=== PATIENT | male | born 1955 | race Two or more races ===

== ENCOUNTER 2023-09-15 03:04 | Inpatient (IN) | payer MEDICAID ==
[2023-09-15] VITALS (43 sets, daily range): BP systolic 91–193; BP diastolic 51–118; PULSE 52–160; RESP 13–28; TEMP 98.6–100; O2SAT 74–99
[~2023-09-15] VITALS: Ht 167.6 cm; Wt 90.0 kg
[2023-09-15] MEDS ORDERED: MIDAZOLAM HCL 5 MG/ML-1ML VIAL IV ONE (03:30)
[2023-09-15] MEDS ORDERED: MIDAZOLAM HCL 5 MG/ML-1ML VIAL ONE (03:31)
[2023-09-15] MEDS ORDERED: ADENOSINE 6 MG/2 ML INJ IV ONE ×4 (03:33→06:45)
[2023-09-15] MEDS ORDERED: ETOMIDATE (2MG/ML) 20ML VIAL IV ONE ×2 (03:37→06:45)
[2023-09-15] MEDS ORDERED: ROCURONIUM 10MG/ML 10ML VIAL IV ONE ×2 (03:38→06:45)
[2023-09-15 03:46] LABS: Basophils # (auto) 0.3 10 ^3/uL (0-0.2); Basophils % (auto) 1.8 % (0.0-2.0); Eosinophils # (auto) 0.5 10 ^3/uL (0-0.8); Eosinophils % (auto) 2.8 % (0.0-7.0); Hemoglobin 19.2 g/dL (13.5-17.5); Lymphocytes # (auto) 7.6 10 ^3/uL (0.4-5.4); Lymphocytes % (auto) 45.7 % (10.0-50.0); Mean Corpuscular Hemoglobin 31.2 pg (28.0-32.0); Mean Corpuscular Volume 94.4 fL (80.0-100.0); Monocytes # (auto) 0.9 10 ^3/uL (0-1.3); Monocytes % (auto) 5.7 % (0.0-12.0); Neutrophils # (auto) 7.3 10 ^3/uL (1.6-8.6); Nucleated Red Blood Cells % 0.4 %; Red Blood Cells 6.16 10^6/uL (4.5-5.90); Red Cell Distribution Width 13.6 % (11.8-14.3); White Blood Cell 16.6 10^3/uL (4.4-10.8)
[2023-09-15] MEDS ORDERED: fentaNYL CITRATE 100 MCG/2 ML VL ONE (03:46)
[2023-09-15 03:48] LABS: Hematocrit 58.2 % (41.0-53.0)
[2023-09-15] MEDS ORDERED: dilTIAZem HCL 50 MG/10 ML VIAL IV ONE (03:59)
[2023-09-15 04:04] LABS: Alanine Aminotransferase 25 U/L (7-40); Albumin 4.7 g/dL (3.2-4.8); Alkaline Phosphatase 102 U/L (46-116); Anion Gap 14 (5-15); Aspartate Aminotransferase 17 U/L (13-40); Bilirubin, Total 0.5 mg/dL (0.2-1.0); Blood Urea Nitrogen 15 mg/dL (9-23); Calcium 9.7 mg/dL (8.7-10.4); Carbon Dioxide 21 mmol/L (20-30); Chloride 107 mmol/L (98-107); Glucose 146 mg/dL (74-106); Magnesium 1.8 mg/dL (1.6-2.6); Potassium 4.2 mmol/L (3.5-5.1); Sodium 142 mmol/L (136-145); Total Protein 8.6 g/dL (5.7-8.2)
[2023-09-15] MEDS ORDERED: VANCOMYCIN 1GM/250ML 250 ML IV ONE (04:30)
[2023-09-15] MEDS ORDERED: PIPERACILLIN-TAZOB 3.375GM 100 ML IV ONE (04:30)
[2023-09-15] MEDS ORDERED: FUROSEMIDE 100 MG/10ML VIAL IV ONE (04:30)
[2023-09-15] MEDS: fentaNYL Drip 2500mCg/250mlNS 250 ML IV SCH ×2 (04:36→19:48)
[2023-09-15 05:00] LABS: Base Excess -14.3 mmol/L (-2.0-2.0)
[2023-09-15] MEDS ORDERED: DexAMETHasone SOD PHOS 10MG/1ML VIAL INJ IV ONE (05:15)
[2023-09-15] MEDS ORDERED: LACTATED RINGER'S 2,000 ML IV ONE (05:15)
[2023-09-15 05:24] LABS: Urine Bacteria MANY /hpf (None Seen); Urine Blood 1+ /uL (Negative); Urine Clarity HAZY (Clear); Urine Color Yellow (Yellow); Urine Mucus FEW (None Seen); Urine Protein, UAD 1+ (Negative); Urine Specific Gravity 1.018 (1.001-1.035); Urine Sperm PRESENT /hpf (None Seen); Urine Urobilinogen Normal (Negative); Urine WBC 17 /hpf (0 - 3); Urine pH 5.5 (5.0-8.0)
[2023-09-15] MEDS ORDERED: ONDANSETRON HCL 4 MG/2 ML VIAL IV PRN (06:00)
[2023-09-15] MEDS ORDERED: VANCOMYCIN PER PHARMACY 0 MG IV SCH (06:00)
[2023-09-15] MEDS ORDERED: LABETALOL HCL 5 MG/ML 4ML SYRINGE IV PRN (06:00)
[2023-09-15] MEDS ORDERED: dilTIAZem 25 MG/5 ML VIAL IV ONE ×2 (06:00→06:45)
[2023-09-15] MEDS ORDERED: MAGNESIUM SULFATE 1GM/100ML 100 ML IV ONE (06:45)
[2023-09-15] MEDS ORDERED: fentaNYL CITRATE 100 MCG/2 ML VL IV ONE (06:45)
[2023-09-15] MEDS ORDERED: ATROPINE SULF 1 MG/10ml SYR IV ONE (06:45)
[2023-09-15] MEDS ORDERED: FLUMAZENIL 0.1 MG/ML INJ 10ML MDV IV ONE (06:45)
[2023-09-15] MEDS ORDERED: MIDAZOLAM DRIP 50 mg/50mL 50 ML IV ONE (07:06)
[2023-09-15] MEDS: MIDAZOLAM DRIP 50 mg/50mL 50 ML IV SCH ×3 (07:07→23:23)
[2023-09-15] MEDS ORDERED: NITROGLYCERIN 0.4 MG SL TAB SL PRN (07:15)
[2023-09-15] MEDS ORDERED: MORPHINE SULFATE INJ 2 MG/ml SYRG IV PRN (07:15)
[2023-09-15 07:37] LABS: Base Excess -11.9 mmol/L (-2.0-2.0)
[2023-09-15 07:38] LABS: Lactic Acid w/Reflex 4.8 mmol/L (0.4-2.0)
[2023-09-15 09:11] LABS: COVID19 ANTIGEN SOFIA FIA NEGATIVE (NEGATIVE); Rapid Influenza A Negative (Negative); Rapid Influenza B Negative (Negative)
[2023-09-15 09:26] LABS: LDL Cholesterol 185 mg/dL (< 100); Triglycerides 310 mg/dL (< 150)
[2023-09-15 09:27] LABS: Cholesterol 262 mg/dL (< 200); HDL Cholesterol 42 mg/dL (40-59)
[2023-09-15] MEDS: NOREPINEPHRINE 8 MG/250ML KIT 250 ML IV SCH (09:59)
[2023-09-15] MEDS ORDERED: HEPARIN SODIUM (PORCINE) 5000 UNITS/ML 1ML VIAL SC SCH (10:00)
[2023-09-15] MEDS: AZITHROMYCIN 500MG/ 250ML 250 ML IV SCH (10:06)
[2023-09-15] MEDS: FAMOTIDINE (10MG/ML) 2ML VL IV SCH ×2 (10:06→21:27)
[2023-09-15] MEDS: VASOPRESSIN 20 UNITS in SODIUM CHL 0.9% 99 ML IV SCH ×2 (11:15→22:22)
[2023-09-15] MEDS ORDERED: FUROSEMIDE 20 MG/2 ML VIAL IV SCH (13:30)
[2023-09-15] MEDS: PIPERACILLIN-TAZOB 3.375GM 100 ML IV SCH ×2 (13:35→21:27)
[2023-09-15] MEDS ORDERED: HEPARIN DRIP/D5W 100UNITS/ML 250 ML IV SCH ×2 (13:45→23:45)
[2023-09-15] MEDS ORDERED: ASPirin 325 MG TAB PO ONE (14:00)
[2023-09-15] MEDS ORDERED: DexAMETHasone SOD PHOS 10MG/1ML VIAL INJ IV SCH (14:00)
[2023-09-15 14:06] LABS: INR 1.14 (0.9-1.15); Partial Thromboplastin Time 30.5 SEC (24.5-34.5); Prothrombin Time 11.9 sec (9.3-11.8)
[2023-09-15] MEDS ORDERED: CLOPIDOGREL 300 MG TAB PO ONE (14:30)
[2023-09-15] MEDS: LIDOCAINE 1% (LOCAL ANESTH.) PF 5ml SDV ID ONE ×2 (14:46→16:11)
[2023-09-15] MEDS ORDERED: EMPAGLIFLOZIN 10 MG TAB PO SCH (15:00)
[2023-09-15] MEDS: SODIUM CHLOR 0.9% PF (SALINE LOCK) 10ML VIAL/SYR IV SCH ×3 (15:17→21:27)
[2023-09-15] MEDS: ACETAMINOPHEN 650 MG RECT SUPP PR PRN (15:18)
[2023-09-15] MEDS ORDERED: methylPREDNISolone SOD SUCC 40 MG/ML VL IV ONE (17:00)
[2023-09-15 17:31] LABS: Base Excess -8.5 mmol/L (-2.0-2.0)
[2023-09-15] MEDS: VANCOMYCIN 1GM/250ML 250 ML IV SCH (18:16)
[2023-09-15] MEDS: methylPREDNISolone SOD SUCC 40 MG/ML VL IV SCH (21:27)
[2023-09-15 22:09] LABS: Basophils # (auto) 0 10 ^3/uL (0-0.2); Basophils % (auto) 0.1 % (0.0-2.0); Eosinophils # (auto) 0 10 ^3/uL (0-0.8); Hematocrit 48.2 % (41.0-53.0); Lymphocytes # (auto) 1.2 10 ^3/uL (0.4-5.4); Lymphocytes % (auto) 7.5 % (10.0-50.0); Mean Corpuscular Hgb Conc. 33.1 g/dL (32.0-36.0); Mean Corpuscular Volume 93.7 fL (80.0-100.0); Monocytes # (auto) 0.5 10 ^3/uL (0-1.3); Monocytes % (auto) 3.2 % (0.0-12.0); Neutrophils # (auto) 14.6 10 ^3/uL (1.6-8.6); Neutrophils % (auto) 89.2 % (37.0-80.0); Nucleated Red Blood Cells % 0.1 %; Red Blood Cells 5.14 10^6/uL (4.5-5.90); Red Cell Distribution Width 13.6 % (11.8-14.3); White Blood Cell 16.3 10^3/uL (4.4-10.8)
[2023-09-15 22:25] LABS: Alanine Aminotransferase 38 U/L (7-40); Alkaline Phosphatase 51 U/L (46-116); Anion Gap 6 (5-15); Aspartate Aminotransferase 57 U/L (13-40); BUN/Creatinine Ratio 9.7 (10.0-20.0); Blood Urea Nitrogen 18 mg/dL (9-23); Calcium 8.1 mg/dL (8.5-10.1); Carbon Dioxide 22 mmol/L (20-30); Chloride 109 mmol/L (98-107); Glucose 224 mg/dL (74-106); Potassium 4.4 mmol/L (3.5-5.1); Sodium 137 mmol/L (136-145)
[2023-09-15 22:26] LABS: Albumin 3.5 g/dL (3.2-4.8); Bilirubin, Total 0.4 mg/dL (0.2-1.0); INR 1.17 (0.9-1.15); Partial Thromboplastin Time 47.2 SEC (24.5-34.5); Prothrombin Time 12.2 sec (9.3-11.8); Total Protein 6.2 g/dL (5.7-8.2)
[2023-09-16] VITALS (98 sets, daily range): BP systolic 85–132; BP diastolic 44–71; PULSE 46–73; RESP 0–24; TEMP 97.7–99.1; O2SAT 91–100
[2023-09-16] MEDS: NOREPINEPHRINE 8 MG/250ML KIT 250 ML IV SCH (00:25)
[2023-09-16] MEDS: MIDAZOLAM DRIP 50 mg/50mL 50 ML IV SCH ×3 (04:23→21:38)
[2023-09-16] MEDS: VANCOMYCIN 1GM/250ML 250 ML IV SCH ×2 (04:23→18:04)
[2023-09-16 04:27] LABS: Basophils # (auto) 0 10 ^3/uL (0-0.2); Basophils % (auto) 0.1 % (0.0-2.0); Eosinophils # (auto) 0 10 ^3/uL (0-0.8); Hematocrit 46.1 % (41.0-53.0); Hemoglobin 15.3 g/dL (13.5-17.5); Lymphocytes # (auto) 1.4 10 ^3/uL (0.4-5.4); Lymphocytes % (auto) 8.4 % (10.0-50.0); Mean Corpuscular Hemoglobin 31.4 pg (28.0-32.0); Mean Corpuscular Hgb Conc. 33.2 g/dL (32.0-36.0); Mean Corpuscular Volume 94.5 fL (80.0-100.0); Monocytes # (auto) 0.6 10 ^3/uL (0-1.3); Monocytes % (auto) 3.6 % (0.0-12.0); Neutrophils # (auto) 14.7 10 ^3/uL (1.6-8.6); Neutrophils % (auto) 87.9 % (37.0-80.0); Nucleated Red Blood Cells % 0.1 %; Red Blood Cells 4.87 10^6/uL (4.5-5.90); Red Cell Distribution Width 13.7 % (11.8-14.3); White Blood Cell 16.7 10^3/uL (4.4-10.8)
[2023-09-16 04:39] LABS: Alanine Aminotransferase 36 U/L (7-40); Albumin 3.3 g/dL (3.2-4.8); Alkaline Phosphatase 49 U/L (46-116); Anion Gap 9 (5-15); Aspartate Aminotransferase 48 U/L (13-40); BUN/Creatinine Ratio 8.8 (10.0-20.0); Bilirubin, Total 0.5 mg/dL (0.2-1.0); Blood Urea Nitrogen 16 mg/dL (9-23); Carbon Dioxide 21 mmol/L (20-30); Chloride 107 mmol/L (98-107); Glucose 214 mg/dL (74-106); Potassium 4.3 mmol/L (3.5-5.1); Sodium 137 mmol/L (136-145)
[2023-09-16 04:45] LABS: INR 1.22 (0.9-1.15); Partial Thromboplastin Time 65.1 SEC (24.5-34.5); Prothrombin Time 12.6 sec (9.3-11.8)
[2023-09-16] MEDS: SODIUM CHLOR 0.9% PF (SALINE LOCK) 10ML VIAL/SYR IV SCH ×5 (05:15→21:36)
[2023-09-16] MEDS: PIPERACILLIN-TAZOB 3.375GM 100 ML IV SCH ×3 (05:15→21:35)
[2023-09-16 06:15] LABS: INR 1.27 (0.9-1.15); Partial Thromboplastin Time 61.9 SEC (24.5-34.5); Prothrombin Time 13.1 sec (9.3-11.8)
[2023-09-16] MEDS: fentaNYL Drip 2500mCg/250mlNS 250 ML IV SCH (06:34)
[2023-09-16] MEDS ORDERED: IODIXANOL 320MG/ML 100ML BTL IV ONE ×2 (07:30→12:09)
[2023-09-16] MEDS ORDERED: LIDOCAINE 2%HCL (LOCAL ANESTH.) INJ 20ML MDV ONE ×2 (07:30→12:09)
[2023-09-16] MEDS ORDERED: CLOPIDOGREL BISULFATE 75 MG TAB PO SCH (08:00)
[2023-09-16] MEDS: VASOPRESSIN 20 UNITS in SODIUM CHL 0.9% 99 ML IV SCH ×2 (09:29→20:36)
[2023-09-16] MEDS: methylPREDNISolone SOD SUCC 40 MG/ML VL IV SCH ×2 (10:00→21:35)
[2023-09-16] MEDS: ASPirin 81 mg TAB PO SCH (10:00)
[2023-09-16] MEDS: AZITHROMYCIN 500MG/ 250ML 250 ML IV SCH (10:00)
[2023-09-16] MEDS: FAMOTIDINE (10MG/ML) 2ML VL IV SCH ×2 (10:01→21:36)
[2023-09-16] MEDS ORDERED: ANGIOMAX 250 MG VIAL IV ONE (12:09)
[2023-09-16] MEDS ORDERED: SODIUM CHL 0.9% 0 ML ONE (12:09)
[2023-09-16] MEDS ORDERED: HEPARIN SODIUM (PORCINE) 5000 UNITS/ML 1ML VIAL ONE (12:09)
[2023-09-16] MEDS ORDERED: VERAPAMIL 2.5MG/ML INJ 2ML VIAL IV ONE (12:09)
[2023-09-16] MEDS ORDERED: ATROPINE SULF 1 MG/10ml SYR ONE (12:10)
[2023-09-16] MEDS ORDERED: EPINEPHrine HCL 1 MG/10 ML SYRG ONE (12:10)
[2023-09-16 12:16] LABS: INR 1.4 (0.9-1.15); Prothrombin Time 14.4 sec (9.3-11.8)
[2023-09-16 12:42] LABS: Partial Thromboplastin Time 88.8 SEC (24.5-34.5)
[2023-09-16] MEDS ORDERED: MAGNESIUM SULFATE 1GM/100ML 100 ML IV ONE ×2 (14:00→14:09)
[2023-09-17] VITALS (103 sets, daily range): BP systolic 42–166; BP diastolic 33–107; PULSE 50–128; RESP 0–26; TEMP 97.7–99.3; O2SAT 91–100
[2023-09-17] MEDS: MIDAZOLAM DRIP 50 mg/50mL 50 ML IV SCH ×5 (02:22→22:53)
[2023-09-17 04:51] LABS: Basophils # (auto) 0 10 ^3/uL (0-0.2); Basophils % (auto) 0.1 % (0.0-2.0); Eosinophils # (auto) 0 10 ^3/uL (0-0.8); Hematocrit 47.2 % (41.0-53.0); Hemoglobin 15.4 g/dL (13.5-17.5); Lymphocytes # (auto) 1.3 10 ^3/uL (0.4-5.4); Lymphocytes % (auto) 6.2 % (10.0-50.0); Mean Corpuscular Hemoglobin 31.4 pg (28.0-32.0); Mean Corpuscular Hgb Conc. 32.6 g/dL (32.0-36.0); Mean Corpuscular Volume 96.3 fL (80.0-100.0); Monocytes # (auto) 1.6 10 ^3/uL (0-1.3); Monocytes % (auto) 7.4 % (0.0-12.0); Neutrophils # (auto) 18.3 10 ^3/uL (1.6-8.6); Neutrophils % (auto) 86.3 % (37.0-80.0); Nucleated Red Blood Cells % 0.1 %; Red Cell Distribution Width 14.2 % (11.8-14.3); White Blood Cell 21.2 10^3/uL (4.4-10.8)
[2023-09-17 04:54] LABS: Anion Gap 7 (5-15); Carbon Dioxide 25 mmol/L (20-30); Chloride 106 mmol/L (98-107); Potassium 4.4 mmol/L (3.5-5.1); Sodium 138 mmol/L (136-145)
[2023-09-17 04:55] LABS: Calcium 8.2 mg/dL (8.5-10.1)
[2023-09-17 05:00] LABS: BUN/Creatinine Ratio 12.2 (10.0-20.0); Blood Urea Nitrogen 20 mg/dL (9-23); Glucose 155 mg/dL (74-106)
[2023-09-17] MEDS ORDERED: PROPOFOL 100 ML IV SCH (05:15)
[2023-09-17] MEDS: VANCOMYCIN 1GM/250ML 250 ML IV SCH (05:50)
[2023-09-17] MEDS: fentaNYL Drip 2500mCg/250mlNS 250 ML IV SCH ×3 (06:24→20:09)
[2023-09-17] MEDS: SODIUM CHLOR 0.9% PF (SALINE LOCK) 10ML VIAL/SYR IV SCH ×5 (06:25→21:16)
[2023-09-17] MEDS: PIPERACILLIN-TAZOB 3.375GM 100 ML IV SCH ×3 (06:26→21:15)
[2023-09-17 06:48] LABS: Base Excess -7.8 mmol/L (-2.0-2.0)
[2023-09-17] MEDS ORDERED: FLUMAZENIL 0.1 MG/ML INJ 10ML MDV IV ONE (08:43)
[2023-09-17] MEDS ORDERED: NALOXONE HCL 0.4 MG/ML VIAL ONE (08:43)
[2023-09-17] MEDS ORDERED: LIDOCAINE 2%HCL (LOCAL ANESTH.) INJ 20ML MDV ONE (09:18)
[2023-09-17] MEDS ORDERED: LIDOCAINE 2% JELLY 11ml (GLYDO) ONE (09:18)
[2023-09-17] MEDS ORDERED: GLYCOPYRROLATE 0.2 MG/ML 1ML VIAL ONE (09:19)
[2023-09-17] MEDS ORDERED: EPINEPHrine HCL 1 MG/1 ML AMP ONE (09:19)
[2023-09-17] MEDS: NOREPINEPHRINE 8 MG/250ML KIT 250 ML IV SCH (09:45)
[2023-09-17] MEDS ORDERED: ENOXAPARIN SOD 40 MG/0.4 ML SYRINGE SC SCH ×2 (10:00)
[2023-09-17] MEDS ORDERED: DOBUTamine 1000MCG/ML 250 ML IV SCH (10:45)
[2023-09-17] MEDS ORDERED: ENOXAPARIN SOD 100 MG/1 ML SYRINGE SC ONE (10:45)
[2023-09-17] MEDS ORDERED: PANTOPRAZOLE 40 MG/10 ML VIAL INJ IV ONE (11:00)
[2023-09-17] MEDS: AZITHROMYCIN 500MG/ 250ML 250 ML IV SCH (11:14)
[2023-09-17] MEDS: FAMOTIDINE (10MG/ML) 2ML VL IV SCH ×2 (11:15→21:14)
[2023-09-17] MEDS: DOBUTamine 1000MCG/ML 250 ML IV SCH (15:30)
[2023-09-17] MEDS ORDERED: Jevity 1.2 Cal/Fiber 1 Liter GT SCH (16:45)
[2023-09-17] MEDS: ATORVASTATIN 20 MG TAB PO SCH (21:15)
[2023-09-17] MEDS: ENOXAPARIN SOD 100 MG/1 ML SYRINGE SC SCH (21:16)
[2023-09-17 23:02] LABS: INR 1.14 (0.9-1.15); Partial Thromboplastin Time 33.6 SEC (24.5-34.5); Prothrombin Time 11.9 sec (9.3-11.8)
[2023-09-18] VITALS (106 sets, daily range): BP systolic 88–193; BP diastolic 52–143; PULSE 61–113; RESP 17–25; TEMP 96.8–99.5; O2SAT 99–100
[2023-09-18] MEDS: MIDAZOLAM DRIP 50 mg/50mL 50 ML IV SCH ×5 (01:32→23:29)
[2023-09-18] MEDS: fentaNYL Drip 2500mCg/250mlNS 250 ML IV SCH ×3 (01:33→23:28)
[2023-09-18] MEDS: DOBUTamine 1000MCG/ML 250 ML IV SCH ×4 (01:39→19:24)
[2023-09-18] MEDS: PIPERACILLIN-TAZOB 3.375GM 100 ML IV SCH ×3 (05:00→21:40)
[2023-09-18] MEDS: SODIUM CHLOR 0.9% PF (SALINE LOCK) 10ML VIAL/SYR IV SCH ×5 (05:00→21:40)
[2023-09-18 05:12] LABS: Basophils # (auto) 0 10 ^3/uL (0-0.2); Eosinophils # (auto) 0 10 ^3/uL (0-0.8); Hematocrit 40.8 % (41.0-53.0); Hemoglobin 13.7 g/dL (13.5-17.5); Lymphocytes % (auto) 6.7 % (10.0-50.0); Mean Corpuscular Hemoglobin 31.3 pg (28.0-32.0); Mean Corpuscular Hgb Conc. 33.6 g/dL (32.0-36.0); Mean Corpuscular Volume 93.3 fL (80.0-100.0); Monocytes # (auto) 1.3 10 ^3/uL (0-1.3); Neutrophils # (auto) 12.5 10 ^3/uL (1.6-8.6); Neutrophils % (auto) 84.3 % (37.0-80.0); Red Blood Cells 4.38 10^6/uL (4.5-5.90); Red Cell Distribution Width 13.2 % (11.8-14.3); White Blood Cell 14.8 10^3/uL (4.4-10.8)
[2023-09-18 05:38] LABS: Alanine Aminotransferase 23 U/L (7-40); Albumin 3.4 g/dL (3.2-4.8); Alkaline Phosphatase 35 U/L (46-116); Anion Gap 8 (5-15); Aspartate Aminotransferase 18 U/L (13-40); BUN/Creatinine Ratio 20.4 (10.0-20.0); Calcium 7.9 mg/dL (8.7-10.4); Carbon Dioxide 23 mmol/L (20-30); Chloride 106 mmol/L (98-107); Glucose 118 mg/dL (74-106); Magnesium 2.2 mg/dL (1.6-2.6); Potassium 3.9 mmol/L (3.5-5.1); Sodium 137 mmol/L (136-145)
[2023-09-18 05:39] LABS: Bilirubin, Total 0.5 mg/dL (0.2-1.0); Total Protein 5.7 g/dL (5.7-8.2)
[2023-09-18 05:40] LABS: Lactic Acid w/Reflex 2.1 mmol/L (0.4-2.0)
[2023-09-18 05:50] LABS: Blood Urea Nitrogen 31 mg/dL (9-23)
[2023-09-18 06:25] LABS: CRP High Sensitivity 2.06 mg/dL (<1.0)
[2023-09-18] MEDS ORDERED: hydrALAZINE HCL 20 MG/ML VL IV ONE (07:30)
[2023-09-18 07:38] LABS: Base Excess -2.2 mmol/L (-2.0-2.0)
[2023-09-18] MEDS: FAMOTIDINE (10MG/ML) 2ML VL IV SCH ×2 (07:56→21:37)
[2023-09-18] MEDS: methylPREDNISolone SOD SUCC 40 MG/ML VL IV SCH (07:57)
[2023-09-18] MEDS: AZITHROMYCIN 500MG/ 250ML 250 ML IV SCH (07:57)
[2023-09-18] MEDS: PANTOPRAZOLE 40 MG/10 ML VIAL INJ IV SCH (07:57)
[2023-09-18] MEDS: ENOXAPARIN SOD 100 MG/1 ML SYRINGE SC SCH ×2 (07:57→21:54)
[2023-09-18] MEDS ORDERED: CYANOCOBALAMIN (B-12) 1000 MCG/1 ML VIAL IM ONE (08:45)
[2023-09-18] MEDS ORDERED: CALCIUM GLUC 1,000mg/50ml-NS 50 ML IV ONE (08:45)
[2023-09-18] MEDS: ERGOCALCIFEROL 50,000 UNIT(1.25MG) CAP PO SCH (09:41)
[2023-09-18] MEDS: NOREPINEPHRINE 8 MG/250ML KIT 250 ML IV SCH (09:45)
[2023-09-18] MEDS ORDERED: METOPROLOL TARTRATE 25 MG TAB GT SCH (10:00)
[2023-09-18] MEDS: METOCLOPRAMIDE HCL 5MG/ml INJ 2ml VIAL IV SCH ×3 (11:12→23:32)
[2023-09-18] MEDS: FUROSEMIDE 40 MG/4 ML VIAL IV SCH (11:13)
[2023-09-18 13:26] LABS: Base Excess -1.1 mmol/L (-2.0-2.0)
[2023-09-18] MEDS: PROPOFOL 100 ML IV SCH (16:00)
[2023-09-18] MEDS: ATORVASTATIN 20 MG TAB PO SCH (21:42)
[2023-09-18] MEDS: LACTULOSE 20Gm/30ML SOLN PO SCH (21:42)
[2023-09-19] VITALS (108 sets, daily range): BP systolic 91–181; BP diastolic 50–89; PULSE 64–113; RESP 19–26; TEMP 97.3–99.5; O2SAT 92–100
[2023-09-19 04:08] LABS: Basophils # (auto) 0 10 ^3/uL (0-0.2); Eosinophils # (auto) 0 10 ^3/uL (0-0.8); Hematocrit 41.4 % (41.0-53.0); Lymphocytes # (auto) 1.4 10 ^3/uL (0.4-5.4); Lymphocytes % (auto) 12.8 % (10.0-50.0); Mean Corpuscular Hgb Conc. 33.9 g/dL (32.0-36.0); Mean Corpuscular Volume 94.4 fL (80.0-100.0); Monocytes # (auto) 1.2 10 ^3/uL (0-1.3); Monocytes % (auto) 10.3 % (0.0-12.0); Neutrophils # (auto) 8.6 10 ^3/uL (1.6-8.6); Neutrophils % (auto) 76.9 % (37.0-80.0); Red Blood Cells 4.39 10^6/uL (4.5-5.90); Red Cell Distribution Width 13.6 % (11.8-14.3); White Blood Cell 11.2 10^3/uL (4.4-10.8)
[2023-09-19 04:28] LABS: Alanine Aminotransferase 23 U/L (7-40); Albumin 3.5 g/dL (3.2-4.8); Alkaline Phosphatase 40 U/L (46-116); Anion Gap 6 (5-15); Aspartate Aminotransferase 20 U/L (13-40); BUN/Creatinine Ratio 23.1 (10.0-20.0); Bilirubin, Total 0.7 mg/dL (0.2-1.0); Blood Urea Nitrogen 37 mg/dL (9-23); Calcium 8.1 mg/dL (8.7-10.4); Carbon Dioxide 26 mmol/L (20-30); Chloride 106 mmol/L (98-107); Glucose 108 mg/dL (74-106); Potassium 3.8 mmol/L (3.5-5.1); Sodium 138 mmol/L (136-145); Total Protein 5.9 g/dL (5.7-8.2)
[2023-09-19 04:51] LABS: CRP High Sensitivity 3.62 mg/dL (<1.0)
[2023-09-19] MEDS: METOCLOPRAMIDE HCL 5MG/ml INJ 2ml VIAL IV SCH ×3 (05:40→16:55)
[2023-09-19] MEDS: SODIUM CHLOR 0.9% PF (SALINE LOCK) 10ML VIAL/SYR IV SCH ×5 (05:41→22:07)
[2023-09-19] MEDS: PIPERACILLIN-TAZOB 3.375GM 100 ML IV SCH ×3 (05:41→21:42)
[2023-09-19] MEDS: MIDAZOLAM DRIP 50 mg/50mL 50 ML IV SCH (05:41)
[2023-09-19] MEDS: PROPOFOL 100 ML IV SCH ×3 (05:42→21:43)
[2023-09-19] MEDS: hydrALAZINE HCL 20 MG/ML VL IV PRN (06:19)
[2023-09-19 08:04] LABS: Base Excess -0.1 mmol/L (-2.0-2.0)
[2023-09-19] MEDS: NOREPINEPHRINE 8 MG/250ML KIT 250 ML IV SCH (09:45)
[2023-09-19] MEDS: CYANOCOBALAMIN 500 MCG TAB PO SCH (11:04)
[2023-09-19] MEDS: ENOXAPARIN SOD 100 MG/1 ML SYRINGE SC SCH ×2 (11:05→21:42)
[2023-09-19] MEDS: AZITHROMYCIN 500MG/ 250ML 250 ML IV SCH (11:05)
[2023-09-19] MEDS: LACTULOSE 20Gm/30ML SOLN PO SCH ×2 (11:10→22:00)
[2023-09-19] MEDS: PANTOPRAZOLE 40 MG/10 ML VIAL INJ IV SCH (11:11)
[2023-09-19] MEDS: FUROSEMIDE 40 MG/4 ML VIAL IV SCH (11:11)
[2023-09-19] MEDS: FAMOTIDINE (10MG/ML) 2ML VL IV SCH ×2 (11:11→21:42)
[2023-09-19] MEDS: methylPREDNISolone SOD SUCC 40 MG/ML VL IV SCH (11:11)
[2023-09-19 12:32] LABS: Amphetamine Screen, Urine Neg (NEGATIVE)
[2023-09-19 12:33] LABS: Urine Bacteria FEW /hpf (None Seen); Urine Blood TRACE /uL (Negative); Urine Clarity Clear (Clear); Urine Color Colorless (Yellow); Urine Protein, UAD Negative (Negative); Urine Specific Gravity 1.006 (1.001-1.035); Urine Urobilinogen Normal (Negative); Urine WBC <1 /hpf (0 - 3)
[2023-09-19 12:34] LABS: Barbiturate Scree,Urine Neg (NEGATIVE); Benzodiazephine Screen, Urine Pos (NEGATIVE); Cannabinoid Screen, Urine Neg (NEGATIVE); Cocaine Screen, Urine Neg (NEGATIVE); Opiate Scree,Urine Neg (NEGATIVE); Phencyclidine Screen, Urine Neg (NEGATIVE)
[2023-09-19] MEDS ORDERED: EPINEPHrine HCL 250 ML IV SCH (13:30)
[2023-09-19] MEDS: ATORVASTATIN 20 MG TAB PO SCH (21:42)
[2023-09-20] VITALS (104 sets, daily range): BP systolic 80–198; BP diastolic 45–102; PULSE 64–120; RESP 14–28; TEMP 91.2–99.7; O2SAT 92–100
[2023-09-20] MEDS: METOCLOPRAMIDE HCL 5MG/ml INJ 2ml VIAL IV SCH ×4 (00:05→18:29)
[2023-09-20 04:02] LABS: Basophils # (auto) 0 10 ^3/uL (0-0.2); Basophils % (auto) 0.1 % (0.0-2.0); Eosinophils # (auto) 0 10 ^3/uL (0-0.8); Eosinophils % (auto) 0.1 % (0.0-7.0); Hematocrit 42.3 % (41.0-53.0); Hemoglobin 14.3 g/dL (13.5-17.5); Lymphocytes % (auto) 10.4 % (10.0-50.0); Mean Corpuscular Hemoglobin 31.5 pg (28.0-32.0); Mean Corpuscular Hgb Conc. 33.8 g/dL (32.0-36.0); Mean Corpuscular Volume 93.2 fL (80.0-100.0); Monocytes # (auto) 1.1 10 ^3/uL (0-1.3); Monocytes % (auto) 10.9 % (0.0-12.0); Neutrophils # (auto) 7.9 10 ^3/uL (1.6-8.6); Neutrophils % (auto) 78.5 % (37.0-80.0); Nucleated Red Blood Cells % 0.1 %; Red Blood Cells 4.54 10^6/uL (4.5-5.90); Red Cell Distribution Width 13.7 % (11.8-14.3); White Blood Cell 10.1 10^3/uL (4.4-10.8)
[2023-09-20 04:17] LABS: Albumin 3.6 g/dL (3.2-4.8); Alkaline Phosphatase 41 U/L (46-116); Aspartate Aminotransferase 24 U/L (13-40); BUN/Creatinine Ratio 26.7 (10.0-20.0); Blood Urea Nitrogen 31 mg/dL (9-23); Chloride 106 mmol/L (98-107); Glucose 123 mg/dL (74-106); Sodium 140 mmol/L (136-145)
[2023-09-20 04:18] LABS: Bilirubin, Total 0.7 mg/dL (0.2-1.0)
[2023-09-20 04:23] LABS: Calcium 8.5 mg/dL (8.5-10.1)
[2023-09-20 04:27] LABS: CRP High Sensitivity 7.75 mg/dL (<1.0)
[2023-09-20] MEDS: fentaNYL Drip 2500mCg/250mlNS 250 ML IV SCH (04:30)
[2023-09-20 04:44] LABS: Anion Gap 8 (5-15); Carbon Dioxide 26 mmol/L (20-30)
[2023-09-20 04:56] LABS: Alanine Aminotransferase 26 U/L (7-40)
[2023-09-20] MEDS: SODIUM CHLOR 0.9% PF (SALINE LOCK) 10ML VIAL/SYR IV SCH ×5 (05:54→21:37)
[2023-09-20] MEDS: PIPERACILLIN-TAZOB 3.375GM 100 ML IV SCH ×3 (05:54→21:37)
[2023-09-20] MEDS: PROPOFOL 100 ML IV SCH ×3 (05:57→22:25)
[2023-09-20] MEDS: hydrALAZINE HCL 20 MG/ML VL IV PRN ×2 (06:21→13:57)
[2023-09-20 06:43] LABS: Base Excess 2.1 mmol/L (-2.0-2.0)
[2023-09-20] MEDS: MIDAZOLAM DRIP 50 mg/50mL 50 ML IV SCH (07:15)
[2023-09-20] MEDS: NOREPINEPHRINE 8 MG/250ML KIT 250 ML IV SCH (07:38)
[2023-09-20] MEDS: LACTULOSE 20Gm/30ML SOLN PO SCH ×2 (07:39→21:36)
[2023-09-20] MEDS: FAMOTIDINE (10MG/ML) 2ML VL IV SCH ×2 (07:53→21:36)
[2023-09-20] MEDS: CYANOCOBALAMIN 500 MCG TAB PO SCH (07:53)
[2023-09-20] MEDS: methylPREDNISolone SOD SUCC 40 MG/ML VL IV SCH (07:54)
[2023-09-20] MEDS: FUROSEMIDE 40 MG/4 ML VIAL IV SCH (07:54)
[2023-09-20] MEDS: ENOXAPARIN SOD 100 MG/1 ML SYRINGE SC SCH ×2 (07:54→21:37)
[2023-09-20] MEDS: PANTOPRAZOLE 40 MG/10 ML VIAL INJ IV SCH (07:55)
[2023-09-20] MEDS: AZITHROMYCIN 500MG/ 250ML 250 ML IV SCH (09:55)
[2023-09-20] MEDS: MORPHINE SULFATE INJ 2 MG/ml SYRG IV PRN (15:00)
[2023-09-20] MEDS: ACETAMINOPHEN 650 MG RECT SUPP PR PRN (15:30)
[2023-09-20] MEDS: ATORVASTATIN 20 MG TAB PO SCH (21:36)
[2023-09-21] VITALS (106 sets, daily range): BP systolic 73–197; BP diastolic 44–93; PULSE 59–111; RESP 14–31; TEMP 99–99.9; O2SAT 92–100
[2023-09-21] MEDS: PROPOFOL 100 ML IV SCH ×2 (00:54→21:51)
[2023-09-21 04:08] LABS: Basophils # (auto) 0 10 ^3/uL (0-0.2); Basophils % (auto) 0.2 % (0.0-2.0); Eosinophils # (auto) 0 10 ^3/uL (0-0.8); Eosinophils % (auto) 0.4 % (0.0-7.0); Hemoglobin 13.5 g/dL (13.5-17.5); Lymphocytes # (auto) 2.5 10 ^3/uL (0.4-5.4); Mean Corpuscular Hemoglobin 31.3 pg (28.0-32.0); Mean Corpuscular Hgb Conc. 33.7 g/dL (32.0-36.0); Monocytes # (auto) 1.4 10 ^3/uL (0-1.3); Neutrophils # (auto) 7.6 10 ^3/uL (1.6-8.6); Neutrophils % (auto) 65.4 % (37.0-80.0); Nucleated Red Blood Cells % 0.1 %; Red Cell Distribution Width 13.6 % (11.8-14.3); White Blood Cell 11.6 10^3/uL (4.4-10.8)
[2023-09-21 04:24] LABS: Chloride 107 mmol/L (98-107); Potassium 3.5 mmol/L (3.5-5.1); Sodium 143 mmol/L (136-145)
[2023-09-21 04:25] LABS: Anion Gap 7 (5-15); Calcium 8.4 mg/dL (8.7-10.4); Carbon Dioxide 29 mmol/L (20-30)
[2023-09-21] MEDS: fentaNYL Drip 2500mCg/250mlNS 250 ML IV SCH (04:30)
[2023-09-21 04:31] LABS: Blood Urea Nitrogen 35 mg/dL (9-23); Glucose 114 mg/dL (74-106)
[2023-09-21 04:58] LABS: BUN/Creatinine Ratio 28.9 (10.0-20.0)
[2023-09-21] MEDS: SODIUM CHLOR 0.9% PF (SALINE LOCK) 10ML VIAL/SYR IV SCH ×5 (06:17→21:47)
[2023-09-21] MEDS: METOCLOPRAMIDE HCL 5MG/ml INJ 2ml VIAL IV SCH ×4 (06:21→14:45)
[2023-09-21] MEDS: PIPERACILLIN-TAZOB 3.375GM 100 ML IV SCH ×3 (06:21→21:46)
[2023-09-21] MEDS: MIDAZOLAM DRIP 50 mg/50mL 50 ML IV SCH (07:15)
[2023-09-21 08:36] LABS: Base Excess 5.4 mmol/L (-2.0-2.0)
[2023-09-21] MEDS: NOREPINEPHRINE 8 MG/250ML KIT 250 ML IV SCH (09:45)
[2023-09-21] MEDS: ENOXAPARIN SOD 100 MG/1 ML SYRINGE SC SCH ×2 (10:00→21:48)
[2023-09-21] MEDS: LACTULOSE 20Gm/30ML SOLN PO SCH ×2 (10:00→21:47)
[2023-09-21] MEDS: PANTOPRAZOLE 40 MG/10 ML VIAL INJ IV SCH (11:45)
[2023-09-21] MEDS: FAMOTIDINE (10MG/ML) 2ML VL IV SCH ×2 (11:45→21:46)
[2023-09-21] MEDS: FUROSEMIDE 40 MG/4 ML VIAL IV SCH (11:45)
[2023-09-21] MEDS: AZITHROMYCIN 500MG/ 250ML 250 ML IV SCH (11:46)
[2023-09-21] MEDS: CYANOCOBALAMIN 500 MCG TAB PO SCH (11:46)
[2023-09-21] MEDS: methylPREDNISolone SOD SUCC 40 MG/ML VL IV SCH (11:46)
[2023-09-21 12:52] LABS: Basophils # (auto) 0 10 ^3/uL (0-0.2); Basophils % (auto) 0.1 % (0.0-2.0); Eosinophils # (auto) 0.2 10 ^3/uL (0-0.8); Eosinophils % (auto) 1.9 % (0.0-7.0); Hematocrit 37.4 % (41.0-53.0); Hemoglobin 12.4 g/dL (13.5-17.5); Lymphocytes # (auto) 1.6 10 ^3/uL (0.4-5.4); Lymphocytes % (auto) 14.5 % (10.0-50.0); Mean Corpuscular Hemoglobin 32.1 pg (28.0-32.0); Mean Corpuscular Hgb Conc. 33.1 g/dL (32.0-36.0); Mean Corpuscular Volume 96.8 fL (80.0-100.0); Monocytes # (auto) 1.1 10 ^3/uL (0-1.3); Monocytes % (auto) 10.4 % (0.0-12.0); Neutrophils % (auto) 73.1 % (37.0-80.0); Red Blood Cells 3.86 10^6/uL (4.5-5.90); Red Cell Distribution Width 14.2 % (11.8-14.3); White Blood Cell 10.9 10^3/uL (4.4-10.8)
[2023-09-21] MEDS ORDERED: DOXYCYCLINE 100MG/250ML 250 ML IV SCH (14:30)
[2023-09-21] MEDS: ATORVASTATIN 20 MG TAB PO SCH (21:46)
[2023-09-21] MEDS: DOXYCYCLINE 100MG/250ML 250 ML IV SCH (21:47)
[2023-09-22] VITALS (110 sets, daily range): BP systolic 70–238; BP diastolic 42–110; PULSE 54–134; RESP 10–35; TEMP 97.3–100.2; O2SAT 89–100
[2023-09-22] MEDS: METOCLOPRAMIDE HCL 5MG/ml INJ 2ml VIAL IV SCH ×4 (01:46→17:45)
[2023-09-22 03:58] LABS: Basophils # (auto) 0 10 ^3/uL (0-0.2); Basophils % (auto) 0.1 % (0.0-2.0); Eosinophils # (auto) 0.1 10 ^3/uL (0-0.8); Eosinophils % (auto) 0.8 % (0.0-7.0); Hematocrit 39.6 % (41.0-53.0); Hemoglobin 13.3 g/dL (13.5-17.5); Lymphocytes # (auto) 2.4 10 ^3/uL (0.4-5.4); Lymphocytes % (auto) 17.5 % (10.0-50.0); Mean Corpuscular Hemoglobin 31.2 pg (28.0-32.0); Mean Corpuscular Hgb Conc. 33.7 g/dL (32.0-36.0); Mean Corpuscular Volume 92.7 fL (80.0-100.0); Monocytes # (auto) 1.7 10 ^3/uL (0-1.3); Monocytes % (auto) 12.6 % (0.0-12.0); Neutrophils # (auto) 9.4 10 ^3/uL (1.6-8.6); Nucleated Red Blood Cells % 0.2 %; Red Blood Cells 4.27 10^6/uL (4.5-5.90); Red Cell Distribution Width 13.4 % (11.8-14.3); White Blood Cell 13.7 10^3/uL (4.4-10.8)
[2023-09-22 04:03] LABS: Anion Gap 8 (5-15); Carbon Dioxide 28 mmol/L (20-30); Chloride 107 mmol/L (98-107); Potassium 3.6 mmol/L (3.5-5.1); Sodium 143 mmol/L (136-145)
[2023-09-22 04:04] LABS: Calcium 8.6 mg/dL (8.7-10.4)
[2023-09-22 04:09] LABS: BUN/Creatinine Ratio 32.5 (10.0-20.0); Blood Urea Nitrogen 38 mg/dL (9-23); Glucose 91 mg/dL (74-106)
[2023-09-22] MEDS: fentaNYL Drip 2500mCg/250mlNS 250 ML IV SCH ×2 (04:30→09:18)
[2023-09-22] MEDS: SODIUM CHLOR 0.9% PF (SALINE LOCK) 10ML VIAL/SYR IV SCH ×5 (05:36→21:26)
[2023-09-22] MEDS: PIPERACILLIN-TAZOB 3.375GM 100 ML IV SCH ×3 (05:37→21:25)
[2023-09-22] MEDS: hydrALAZINE HCL 20 MG/ML VL IV PRN (06:13)
[2023-09-22] MEDS: MORPHINE SULFATE INJ 2 MG/ml SYRG IV PRN (07:11)
[2023-09-22] MEDS: MIDAZOLAM DRIP 50 mg/50mL 50 ML IV SCH (07:15)
[2023-09-22] MEDS: PROPOFOL 100 ML IV SCH ×3 (09:17→19:30)
[2023-09-22] MEDS: NOREPINEPHRINE 8 MG/250ML KIT 250 ML IV SCH ×2 (09:45→16:09)
[2023-09-22] MEDS: PANTOPRAZOLE 40 MG/10 ML VIAL INJ IV SCH (09:45)
[2023-09-22] MEDS: DOXYCYCLINE 100MG/250ML 250 ML IV SCH ×2 (09:45→21:26)
[2023-09-22] MEDS: FUROSEMIDE 40 MG/4 ML VIAL IV SCH (09:45)
[2023-09-22] MEDS: methylPREDNISolone SOD SUCC 40 MG/ML VL IV SCH (09:45)
[2023-09-22] MEDS: LACTULOSE 20Gm/30ML SOLN PO SCH ×2 (09:46→21:26)
[2023-09-22] MEDS: ENOXAPARIN SOD 100 MG/1 ML SYRINGE SC SCH ×2 (09:46→21:26)
[2023-09-22] MEDS: CYANOCOBALAMIN 500 MCG TAB PO SCH (09:46)
[2023-09-22] MEDS: FAMOTIDINE (10MG/ML) 2ML VL IV SCH ×2 (10:00→21:25)
[2023-09-22 10:23] LABS: Hematocrit 39.5 % (41.0-53.0)
[2023-09-22 11:09] LABS: Base Excess 2.1 mmol/L (-2.0-2.0)
[2023-09-22 14:57] LABS: Potassium 3.6 mmol/L (3.5-5.1)
[2023-09-22 15:05] LABS: Phosphorus 4.1 mg/dL (2.4-5.1)
[2023-09-22] MEDS: POTASSIUM CHL 20MEQ/100ML 100 ML IV SCH ×2 (15:40→17:43)
[2023-09-22] MEDS ORDERED: SODIUM CHLORIDE 0.9% 500 ML IV ONE (16:30)
[2023-09-22] MEDS: ATORVASTATIN 20 MG TAB PO SCH (21:26)
[2023-09-23] VITALS (108 sets, daily range): BP systolic 53–276; BP diastolic 35–266; PULSE 54–99; RESP 14–21; TEMP 95.9–99.5; O2SAT 91–100
[2023-09-23 04:48] LABS: Chloride 108 mmol/L (98-107); Potassium 3.5 mmol/L (3.5-5.1); Sodium 142 mmol/L (136-145)
[2023-09-23 04:49] LABS: Anion Gap 7 (5-15); Carbon Dioxide 27 mmol/L (20-30)
[2023-09-23 04:50] LABS: Calcium 8.3 mg/dL (8.7-10.4)
[2023-09-23 04:54] LABS: BUN/Creatinine Ratio 32.4 (10.0-20.0); Blood Urea Nitrogen 36 mg/dL (9-23); Glucose 92 mg/dL (74-106)
[2023-09-23 05:02] LABS: Basophils # (auto) 0 10 ^3/uL (0-0.2); Basophils % (auto) 0.2 % (0.0-2.0); Eosinophils # (auto) 0.3 10 ^3/uL (0-0.8); Eosinophils % (auto) 2.5 % (0.0-7.0); Hematocrit 37.6 % (41.0-53.0); Hemoglobin 12.6 g/dL (13.5-17.5); Lymphocytes # (auto) 2.6 10 ^3/uL (0.4-5.4); Lymphocytes % (auto) 22.4 % (10.0-50.0); Mean Corpuscular Hemoglobin 31.1 pg (28.0-32.0); Mean Corpuscular Hgb Conc. 33.5 g/dL (32.0-36.0); Mean Corpuscular Volume 92.9 fL (80.0-100.0); Monocytes # (auto) 1.3 10 ^3/uL (0-1.3); Monocytes % (auto) 11.5 % (0.0-12.0); Neutrophils # (auto) 7.4 10 ^3/uL (1.6-8.6); Neutrophils % (auto) 63.4 % (37.0-80.0); Nucleated Red Blood Cells % 0.1 %; Red Blood Cells 4.04 10^6/uL (4.5-5.90); Red Cell Distribution Width 13.4 % (11.8-14.3); White Blood Cell 11.7 10^3/uL (4.4-10.8)
[2023-09-23] MEDS: METOCLOPRAMIDE HCL 5MG/ml INJ 2ml VIAL IV SCH ×4 (06:00→18:31)
[2023-09-23] MEDS: PROPOFOL 100 ML IV SCH ×2 (06:00)
[2023-09-23] MEDS: PIPERACILLIN-TAZOB 3.375GM 100 ML IV SCH ×3 (06:00→22:13)
[2023-09-23] MEDS: SODIUM CHLOR 0.9% PF (SALINE LOCK) 10ML VIAL/SYR IV SCH ×5 (06:00→22:13)
[2023-09-23 07:09] LABS: Base Excess -0.7 mmol/L (-2.0-2.0)
[2023-09-23] MEDS: MIDAZOLAM DRIP 50 mg/50mL 50 ML IV SCH (07:15)
[2023-09-23] MEDS ORDERED: EPINEPHrine HCL 1 MG/10 ML SYRG ONE (08:48)
[2023-09-23] MEDS: methylPREDNISolone SOD SUCC 40 MG/ML VL IV SCH (09:17)
[2023-09-23] MEDS: DOXYCYCLINE 100MG/250ML 250 ML IV SCH (09:18)
[2023-09-23] MEDS: PANTOPRAZOLE 40 MG/10 ML VIAL INJ IV SCH (09:19)
[2023-09-23] MEDS: ENOXAPARIN SOD 100 MG/1 ML SYRINGE SC SCH (09:19)
[2023-09-23] MEDS: LACTULOSE 20Gm/30ML SOLN PO SCH ×2 (09:19→22:00)
[2023-09-23] MEDS: FAMOTIDINE (10MG/ML) 2ML VL IV SCH ×2 (09:19→22:12)
[2023-09-23] MEDS: FUROSEMIDE 40 MG/4 ML VIAL IV SCH (09:19)
[2023-09-23] MEDS: CYANOCOBALAMIN 500 MCG TAB PO SCH (09:20)
[2023-09-23] MEDS: ATORVASTATIN 20 MG TAB PO SCH (22:00)
[2023-09-24] VITALS (108 sets, daily range): BP systolic 51–215; BP diastolic 36–106; PULSE 55–174; RESP 9–38; TEMP 92.3–100.4; O2SAT 90–100
[2023-09-24] MEDS: PROPOFOL 100 ML IV SCH ×4 (00:06→22:28)
[2023-09-24] MEDS: METOCLOPRAMIDE HCL 5MG/ml INJ 2ml VIAL IV SCH ×5 (00:06→23:22)
[2023-09-24 04:22] LABS: Basophils # (auto) 0 10 ^3/uL (0-0.2); Basophils % (auto) 0.1 % (0.0-2.0); Eosinophils # (auto) 0.2 10 ^3/uL (0-0.8); Eosinophils % (auto) 1.4 % (0.0-7.0); Hematocrit 36.7 % (41.0-53.0); Hemoglobin 12.4 g/dL (13.5-17.5); Lymphocytes # (auto) 2.6 10 ^3/uL (0.4-5.4); Lymphocytes % (auto) 21.2 % (10.0-50.0); Mean Corpuscular Hemoglobin 31.6 pg (28.0-32.0); Mean Corpuscular Hgb Conc. 33.8 g/dL (32.0-36.0); Mean Corpuscular Volume 93.4 fL (80.0-100.0); Monocytes # (auto) 1.4 10 ^3/uL (0-1.3); Neutrophils # (auto) 8.2 10 ^3/uL (1.6-8.6); Neutrophils % (auto) 66.3 % (37.0-80.0); Red Blood Cells 3.93 10^6/uL (4.5-5.90); Red Cell Distribution Width 13.2 % (11.8-14.3); White Blood Cell 12.4 10^3/uL (4.4-10.8)
[2023-09-24] MEDS: fentaNYL Drip 2500mCg/250mlNS 250 ML IV SCH (04:30)
[2023-09-24 04:31] LABS: Chloride 107 mmol/L (98-107); Potassium 3.4 mmol/L (3.5-5.1); Sodium 143 mmol/L (136-145)
[2023-09-24 04:32] LABS: Anion Gap 10 (5-15); Carbon Dioxide 26 mmol/L (20-30)
[2023-09-24 04:33] LABS: Calcium 8.7 mg/dL (8.5-10.1)
[2023-09-24 04:38] LABS: BUN/Creatinine Ratio 31.4 (10.0-20.0); Blood Urea Nitrogen 38 mg/dL (9-23); Glucose 90 mg/dL (74-106)
[2023-09-24] MEDS: PIPERACILLIN-TAZOB 3.375GM 100 ML IV SCH ×3 (05:51→21:05)
[2023-09-24] MEDS: SODIUM CHLOR 0.9% PF (SALINE LOCK) 10ML VIAL/SYR IV SCH ×5 (05:51→21:05)
[2023-09-24] MEDS: MIDAZOLAM DRIP 50 mg/50mL 50 ML IV SCH ×2 (07:05→22:24)
[2023-09-24 08:02] LABS: Base Excess -1.3 mmol/L (-2.0-2.0)
[2023-09-24] MEDS: hydrALAZINE HCL 20 MG/ML VL IV PRN (08:42)
[2023-09-24] MEDS: FUROSEMIDE 40 MG/4 ML VIAL IV SCH (09:44)
[2023-09-24] MEDS: PANTOPRAZOLE 40 MG/10 ML VIAL INJ IV SCH (09:44)
[2023-09-24] MEDS: FAMOTIDINE (10MG/ML) 2ML VL IV SCH ×2 (09:45→21:05)
[2023-09-24] MEDS: LACTULOSE 20Gm/30ML SOLN PO SCH ×2 (09:45→21:05)
[2023-09-24] MEDS: NOREPINEPHRINE 8 MG/250ML KIT 250 ML IV SCH (09:45)
[2023-09-24] MEDS: CYANOCOBALAMIN 500 MCG TAB PO SCH (09:45)
[2023-09-24] MEDS: POTASSIUM CHL 20MEQ/100ML 100 ML IV SCH ×3 (10:11→15:23)
[2023-09-24] MEDS: ACETAMINOPHEN 650 MG RECT SUPP PR PRN (20:11)
[2023-09-24] MEDS: ATORVASTATIN 20 MG TAB PO SCH (21:05)
[2023-09-25] VITALS (103 sets, daily range): BP systolic 50–261; BP diastolic 34–146; PULSE 64–163; RESP 11–29; TEMP 95.7–100.4; O2SAT 90–100
[2023-09-25] MEDS: PROPOFOL 100 ML IV SCH ×2 (02:39→06:42)
[2023-09-25] MEDS: hydrALAZINE HCL 20 MG/ML VL IV PRN ×2 (03:52→14:16)
[2023-09-25 04:12] LABS: Basophils # (auto) 0.1 10 ^3/uL (0-0.2); Basophils % (auto) 0.4 % (0.0-2.0); Eosinophils # (auto) 0.6 10 ^3/uL (0-0.8); Eosinophils % (auto) 4.5 % (0.0-7.0); Hematocrit 39.6 % (41.0-53.0); Hemoglobin 13.2 g/dL (13.5-17.5); Lymphocytes # (auto) 2.3 10 ^3/uL (0.4-5.4); Lymphocytes % (auto) 16.4 % (10.0-50.0); Mean Corpuscular Hemoglobin 31.2 pg (28.0-32.0); Mean Corpuscular Hgb Conc. 33.3 g/dL (32.0-36.0); Mean Corpuscular Volume 93.5 fL (80.0-100.0); Monocytes # (auto) 1.4 10 ^3/uL (0-1.3); Monocytes % (auto) 10.2 % (0.0-12.0); Neutrophils # (auto) 9.6 10 ^3/uL (1.6-8.6); Neutrophils % (auto) 68.5 % (37.0-80.0); Nucleated Red Blood Cells % 0.1 %; Red Blood Cells 4.23 10^6/uL (4.5-5.90); Red Cell Distribution Width 13.2 % (11.8-14.3)
[2023-09-25 04:22] LABS: Calcium 8.8 mg/dL (8.7-10.4); Chloride 108 mmol/L (98-107); Potassium 3.6 mmol/L (3.5-5.1); Sodium 142 mmol/L (136-145)
[2023-09-25 04:23] LABS: Anion Gap 10 (5-15); Carbon Dioxide 24 mmol/L (20-30)
[2023-09-25 04:28] LABS: BUN/Creatinine Ratio 26.3 (10.0-20.0); Blood Urea Nitrogen 31 mg/dL (9-23); Glucose 87 mg/dL (74-106)
[2023-09-25] MEDS: SODIUM CHLOR 0.9% PF (SALINE LOCK) 10ML VIAL/SYR IV SCH ×5 (05:21→21:19)
[2023-09-25] MEDS: PIPERACILLIN-TAZOB 3.375GM 100 ML IV SCH ×3 (05:21→21:19)
[2023-09-25] MEDS: METOCLOPRAMIDE HCL 5MG/ml INJ 2ml VIAL IV SCH ×3 (05:21→18:00)
[2023-09-25] MEDS: ERGOCALCIFEROL 50,000 UNIT(1.25MG) CAP PO SCH (08:45)
[2023-09-25] MEDS: CYANOCOBALAMIN 500 MCG TAB PO SCH (09:46)
[2023-09-25] MEDS: FUROSEMIDE 40 MG/4 ML VIAL IV SCH (09:46)
[2023-09-25] MEDS: PANTOPRAZOLE 40 MG/10 ML VIAL INJ IV SCH (09:46)
[2023-09-25] MEDS ORDERED: ENOXAPARIN SOD 30 MG/0.3 ML SYRINGE SC SCH (10:00)
[2023-09-25] MEDS: LACTULOSE 20Gm/30ML SOLN PO SCH (10:00)
[2023-09-25 12:02] LABS: Base Excess -1.5 mmol/L (-2.0-2.0)
[2023-09-25] MEDS ORDERED: METOPROLOL TARTRATE 1MG/1ML-5ML VIAL IV ONE (14:45)
[2023-09-25] MEDS ORDERED: ACETAMINOPHEN 650 mg PER 20.3 mL UD PO PRN (16:45)
[2023-09-25 20:26] LABS: Alanine Aminotransferase 35 U/L (7-40); Albumin 3.9 g/dL (3.2-4.8); Alkaline Phosphatase 55 U/L (46-116); Anion Gap 13 (5-15); Aspartate Aminotransferase 22 U/L (13-40); BUN/Creatinine Ratio 24.8 (10.0-20.0); Bilirubin, Total 0.8 mg/dL (0.2-1.0); Blood Urea Nitrogen 27 mg/dL (9-23); Carbon Dioxide 22 mmol/L (20-30); Chloride 109 mmol/L (98-107); Glucose 100 mg/dL (74-106); Potassium 3.5 mmol/L (3.5-5.1); Sodium 144 mmol/L (136-145); Total Protein 6.6 g/dL (5.7-8.2)
[2023-09-25] MEDS ORDERED: POTASSIUM EFFERVESENT TAB 25 MEQ PO ONE (21:00)
[2023-09-25] MEDS: ATORVASTATIN 20 MG TAB PO SCH (21:20)
[2023-09-25] MEDS: METOPROLOL TARTRATE 1MG/1ML-5ML VIAL IV PRN (21:36)
[2023-09-25] MEDS ORDERED: CARVEDILOL 3.125 MG TAB PO SCH (22:00)
[2023-09-25] MEDS ORDERED: TEMAZEPAM 15 MG CAP PO ONE (22:30)
[2023-09-26] VITALS (54 sets, daily range): BP systolic 75–181; BP diastolic 61–128; PULSE 68–157; RESP 10–26; TEMP 98–100; O2SAT 89–99
[2023-09-26] MEDS: METOCLOPRAMIDE HCL 5MG/ml INJ 2ml VIAL IV SCH ×4 (00:48→23:57)
[2023-09-26] MEDS: hydrALAZINE HCL 20 MG/ML VL IV PRN (02:49)
[2023-09-26 03:23] LABS: Chloride 107 mmol/L (98-107); Potassium 3.6 mmol/L (3.5-5.1); Sodium 140 mmol/L (136-145)
[2023-09-26 03:24] LABS: Anion Gap 8 (5-15); Calcium 8.8 mg/dL (8.7-10.4); Carbon Dioxide 25 mmol/L (20-30)
[2023-09-26 03:26] LABS: Basophils # (auto) 0 10 ^3/uL (0-0.2); Basophils % (auto) 0.2 % (0.0-2.0); Eosinophils # (auto) 0.3 10 ^3/uL (0-0.8); Eosinophils % (auto) 2.2 % (0.0-7.0); Hematocrit 40.5 % (41.0-53.0); Hemoglobin 13.7 g/dL (13.5-17.5); Lymphocytes # (auto) 1.9 10 ^3/uL (0.4-5.4); Lymphocytes % (auto) 13.9 % (10.0-50.0); Mean Corpuscular Hemoglobin 31.2 pg (28.0-32.0); Mean Corpuscular Hgb Conc. 33.8 g/dL (32.0-36.0); Mean Corpuscular Volume 92.4 fL (80.0-100.0); Monocytes # (auto) 1.4 10 ^3/uL (0-1.3); Monocytes % (auto) 9.8 % (0.0-12.0); Neutrophils # (auto) 10.3 10 ^3/uL (1.6-8.6); Neutrophils % (auto) 73.9 % (37.0-80.0); Red Blood Cells 4.39 10^6/uL (4.5-5.90); Red Cell Distribution Width 13.3 % (11.8-14.3); White Blood Cell 13.9 10^3/uL (4.4-10.8)
[2023-09-26 03:29] LABS: BUN/Creatinine Ratio 25.5 (10.0-20.0); Blood Urea Nitrogen 25 mg/dL (9-23); Glucose 104 mg/dL (74-106)
[2023-09-26 03:30] LABS: Magnesium 2.1 mg/dL (1.6-2.6)
[2023-09-26] MEDS: PIPERACILLIN-TAZOB 3.375GM 100 ML IV SCH ×3 (05:02→22:16)
[2023-09-26] MEDS: SODIUM CHLOR 0.9% PF (SALINE LOCK) 10ML VIAL/SYR IV SCH ×5 (05:02→22:18)
[2023-09-26] MEDS: EMPAGLIFLOZIN 10 MG TAB PO SCH (06:12)
[2023-09-26 08:32] LABS: Basophils # (auto) 0.1 10 ^3/uL (0-0.2); Basophils % (auto) 0.5 % (0.0-2.0); Eosinophils # (auto) 0.5 10 ^3/uL (0-0.8); Eosinophils % (auto) 3.2 % (0.0-7.0); Hematocrit 41.5 % (41.0-53.0); Hemoglobin 13.6 g/dL (13.5-17.5); Lymphocytes # (auto) 1.7 10 ^3/uL (0.4-5.4); Lymphocytes % (auto) 11.2 % (10.0-50.0); Mean Corpuscular Hemoglobin 30.5 pg (28.0-32.0); Mean Corpuscular Hgb Conc. 32.8 g/dL (32.0-36.0); Mean Corpuscular Volume 92.9 fL (80.0-100.0); Monocytes # (auto) 1.4 10 ^3/uL (0-1.3); Monocytes % (auto) 9.3 % (0.0-12.0); Neutrophils # (auto) 11.2 10 ^3/uL (1.6-8.6); Neutrophils % (auto) 75.8 % (37.0-80.0); Red Blood Cells 4.47 10^6/uL (4.5-5.90); Red Cell Distribution Width 13.1 % (11.8-14.3); White Blood Cell 14.7 10^3/uL (4.4-10.8)
[2023-09-26 08:48] LABS: Chloride 107 mmol/L (98-107); Potassium 3.7 mmol/L (3.5-5.1); Sodium 140 mmol/L (136-145)
[2023-09-26 08:49] LABS: Anion Gap 7 (5-15); Carbon Dioxide 26 mmol/L (20-30)
[2023-09-26 08:50] LABS: Calcium 8.8 mg/dL (8.5-10.1)
[2023-09-26 08:54] LABS: Blood Urea Nitrogen 23 mg/dL (9-23); Glucose 126 mg/dL (74-106)
[2023-09-26] MEDS: METOPROLOL TARTRATE 1MG/1ML-5ML VIAL IV PRN (09:26)
[2023-09-26] MEDS: LACTULOSE 20Gm/30ML SOLN PO SCH (10:00)
[2023-09-26] MEDS ORDERED: POTASSIUM EFFERVESENT TAB 25 MEQ GT ONE (11:00)
[2023-09-26] MEDS: LISINOPRIL 10 MG TAB PO SCH (11:05)
[2023-09-26] MEDS: CYANOCOBALAMIN 500 MCG TAB PO SCH (11:06)
[2023-09-26] MEDS: AMIODARONE HCL 200 MG TAB PO SCH ×2 (11:06→22:17)
[2023-09-26] MEDS: SPIRONOLACTONE 25 MG TAB PO SCH (11:06)
[2023-09-26] MEDS: PANTOPRAZOLE 40 MG/10 ML VIAL INJ IV SCH (11:07)
[2023-09-26] MEDS: FUROSEMIDE 40 MG/4 ML VIAL IV SCH (11:08)
[2023-09-26] MEDS: SUCRALFATE 1 GM/10 ML ORAL SUSP PO SCH (17:00)
[2023-09-26] MEDS: CARVEDILOL 12.5 MG TAB PO SCH (22:17)
[2023-09-26] MEDS: ATORVASTATIN 20 MG TAB PO SCH (22:17)
[2023-09-26] MEDS: APIXABAN 5 MG TAB PO SCH (22:17)
[2023-09-27] VITALS (46 sets, daily range): BP systolic 84–147; BP diastolic 57–86; PULSE 65–100; RESP 12–25; TEMP 97.4–99; O2SAT 90–98
[2023-09-27 05:49] LABS: Anion Gap 6 (5-15); Carbon Dioxide 29 mmol/L (20-30); Chloride 103 mmol/L (98-107); Potassium 3.6 mmol/L (3.5-5.1); Sodium 138 mmol/L (136-145)
[2023-09-27 05:54] LABS: Basophils # (auto) 0.1 10 ^3/uL (0-0.2); Basophils % (auto) 0.3 % (0.0-2.0); Eosinophils # (auto) 0.6 10 ^3/uL (0-0.8); Eosinophils % (auto) 3.3 % (0.0-7.0); Hemoglobin 13.9 g/dL (13.5-17.5); Lymphocytes # (auto) 2.4 10 ^3/uL (0.4-5.4); Mean Corpuscular Hemoglobin 31.2 pg (28.0-32.0); Mean Corpuscular Hgb Conc. 33.9 g/dL (32.0-36.0); Monocytes # (auto) 1.6 10 ^3/uL (0-1.3); Monocytes % (auto) 9.3 % (0.0-12.0); Neutrophils # (auto) 12.4 10 ^3/uL (1.6-8.6); Neutrophils % (auto) 73.1 % (37.0-80.0); Red Blood Cells 4.45 10^6/uL (4.5-5.90)
[2023-09-27 05:55] LABS: Glucose 110 mg/dL (74-106)
[2023-09-27 05:56] LABS: BUN/Creatinine Ratio 19.3 (10.0-20.0); Blood Urea Nitrogen 21 mg/dL (9-23)
[2023-09-27] MEDS: METOCLOPRAMIDE HCL 5MG/ml INJ 2ml VIAL IV SCH ×3 (06:00→17:33)
[2023-09-27] MEDS: SODIUM CHLOR 0.9% PF (SALINE LOCK) 10ML VIAL/SYR IV SCH ×5 (06:04→22:33)
[2023-09-27] MEDS: EMPAGLIFLOZIN 10 MG TAB PO SCH ×2 (06:13→07:19)
[2023-09-27] MEDS: PIPERACILLIN-TAZOB 3.375GM 100 ML IV SCH ×3 (06:14→22:00)
[2023-09-27] MEDS: SUCRALFATE 1 GM/10 ML ORAL SUSP PO SCH ×2 (06:14→16:55)
[2023-09-27] MEDS: CYANOCOBALAMIN 500 MCG TAB PO SCH (08:50)
[2023-09-27] MEDS: LISINOPRIL 10 MG TAB PO SCH (08:50)
[2023-09-27] MEDS: CARVEDILOL 12.5 MG TAB PO SCH ×2 (08:51→22:31)
[2023-09-27] MEDS: AMIODARONE HCL 200 MG TAB PO SCH ×2 (08:51→22:28)
[2023-09-27] MEDS: SPIRONOLACTONE 25 MG TAB PO SCH (08:51)
[2023-09-27] MEDS: FUROSEMIDE 40 MG/4 ML VIAL IV SCH (08:52)
[2023-09-27] MEDS: PANTOPRAZOLE 40 MG/10 ML VIAL INJ IV SCH (08:52)
[2023-09-27] MEDS: LACTULOSE 20Gm/30ML SOLN PO SCH (08:52)
[2023-09-27] MEDS: APIXABAN 5 MG TAB PO SCH ×2 (08:52→22:28)
[2023-09-27 17:22] LABS: Urine Bacteria MANY /hpf (None Seen); Urine Blood Negative /uL (Negative); Urine Clarity HAZY (Clear); Urine Color Yellow (Yellow); Urine Mucus FEW (None Seen); Urine Protein, UAD TRACE (Negative); Urine Specific Gravity 1.028 (1.001-1.035); Urine Urobilinogen Normal (Negative); Urine WBC 2 /hpf (0 - 3); Urine pH 6.5 (5.0-8.0)
[2023-09-27] MEDS: ATORVASTATIN 20 MG TAB PO SCH (22:28)
[2023-09-28] VITALS (7 sets, daily range): BP systolic 103–163; BP diastolic 68–88; PULSE 73–91; RESP 18–19; TEMP 97.4–98.6; O2SAT 95–98
[2023-09-28] MEDS: METOCLOPRAMIDE HCL 5MG/ml INJ 2ml VIAL IV SCH ×5 (01:33→23:49)
[2023-09-28] MEDS: PIPERACILLIN-TAZOB 3.375GM 100 ML IV SCH ×3 (05:45→21:16)
[2023-09-28] MEDS: SODIUM CHLOR 0.9% PF (SALINE LOCK) 10ML VIAL/SYR IV SCH ×5 (05:46→21:14)
[2023-09-28] MEDS: SUCRALFATE 1 GM/10 ML ORAL SUSP PO SCH ×2 (05:59→16:32)
[2023-09-28 07:35] LABS: Basophils # (auto) 0.1 10 ^3/uL (0-0.2); Basophils % (auto) 0.4 % (0.0-2.0); Eosinophils # (auto) 0.5 10 ^3/uL (0-0.8); Eosinophils % (auto) 3.5 % (0.0-7.0); Hematocrit 41.5 % (41.0-53.0); Hemoglobin 13.9 g/dL (13.5-17.5); Lymphocytes # (auto) 2.1 10 ^3/uL (0.4-5.4); Lymphocytes % (auto) 13.5 % (10.0-50.0); Mean Corpuscular Hemoglobin 31.3 pg (28.0-32.0); Mean Corpuscular Hgb Conc. 33.6 g/dL (32.0-36.0); Mean Corpuscular Volume 93.1 fL (80.0-100.0); Monocytes # (auto) 1.1 10 ^3/uL (0-1.3); Monocytes % (auto) 6.8 % (0.0-12.0); Neutrophils # (auto) 11.7 10 ^3/uL (1.6-8.6); Neutrophils % (auto) 75.8 % (37.0-80.0); Nucleated Red Blood Cells % 0.1 %; Red Blood Cells 4.46 10^6/uL (4.5-5.90); Red Cell Distribution Width 13.1 % (11.8-14.3); White Blood Cell 15.5 10^3/uL (4.4-10.8)
[2023-09-28] MEDS: FUROSEMIDE 40 MG/4 ML VIAL IV SCH (09:02)
[2023-09-28] MEDS: PANTOPRAZOLE 40 MG/10 ML VIAL INJ IV SCH (09:02)
[2023-09-28] MEDS: CARVEDILOL 12.5 MG TAB PO SCH ×2 (09:07→21:15)
[2023-09-28] MEDS: APIXABAN 5 MG TAB PO SCH ×2 (09:07→21:15)
[2023-09-28] MEDS: SPIRONOLACTONE 25 MG TAB PO SCH (09:08)
[2023-09-28] MEDS: AMIODARONE HCL 200 MG TAB PO SCH ×2 (09:08→21:14)
[2023-09-28] MEDS: LISINOPRIL 10 MG TAB PO SCH (09:08)
[2023-09-28] MEDS: LACTULOSE 20Gm/30ML SOLN PO SCH (10:00)
[2023-09-28] MEDS: CYANOCOBALAMIN 500 MCG TAB PO SCH (13:36)
[2023-09-28] MEDS: ATORVASTATIN 20 MG TAB PO SCH (21:15)
[2023-09-29] VITALS (9 sets, daily range): BP systolic 92–147; BP diastolic 44–87; PULSE 73–101; RESP 14–20; TEMP 98–98.6; O2SAT 94–100
[2023-09-29] MEDS: SUCRALFATE 1 GM/10 ML ORAL SUSP PO SCH ×2 (05:52→16:17)
[2023-09-29] MEDS: EMPAGLIFLOZIN 10 MG TAB PO SCH (05:52)
[2023-09-29] MEDS: PIPERACILLIN-TAZOB 3.375GM 100 ML IV SCH (05:53)
[2023-09-29] MEDS: SODIUM CHLOR 0.9% PF (SALINE LOCK) 10ML VIAL/SYR IV SCH ×5 (05:53→21:39)
[2023-09-29] MEDS: METOCLOPRAMIDE HCL 5MG/ml INJ 2ml VIAL IV SCH ×4 (06:06→23:22)
[2023-09-29 09:06] LABS: Basophils # (auto) 0.1 10 ^3/uL (0-0.2); Basophils % (auto) 1.1 % (0.0-2.0); Eosinophils # (auto) 0.4 10 ^3/uL (0-0.8); Eosinophils % (auto) 2.9 % (0.0-7.0); Hematocrit 44.6 % (41.0-53.0); Hemoglobin 14.7 g/dL (13.5-17.5); Lymphocytes # (auto) 1.8 10 ^3/uL (0.4-5.4); Lymphocytes % (auto) 12.8 % (10.0-50.0); Mean Corpuscular Hemoglobin 30.5 pg (28.0-32.0); Mean Corpuscular Hgb Conc. 33.1 g/dL (32.0-36.0); Mean Corpuscular Volume 92.3 fL (80.0-100.0); Monocytes # (auto) 0.8 10 ^3/uL (0-1.3); Monocytes % (auto) 5.9 % (0.0-12.0); Neutrophils # (auto) 10.6 10 ^3/uL (1.6-8.6); Neutrophils % (auto) 77.3 % (37.0-80.0); Red Blood Cells 4.83 10^6/uL (4.5-5.90); White Blood Cell 13.7 10^3/uL (4.4-10.8)
[2023-09-29 09:21] LABS: INR 1.36 (0.9-1.15); Partial Thromboplastin Time 30.9 SEC (24.5-34.5)
[2023-09-29 09:23] LABS: Alanine Aminotransferase 26 U/L (7-40); Albumin 4.1 g/dL (3.2-4.8); Alkaline Phosphatase 77 U/L (46-116); Anion Gap 5 (5-15); Aspartate Aminotransferase 21 U/L (13-40); BUN/Creatinine Ratio 18.2 (10.0-20.0); Blood Urea Nitrogen 25 mg/dL (9-23); Calcium 9.4 mg/dL (8.5-10.1); Carbon Dioxide 30 mmol/L (20-30); Chloride 102 mmol/L (98-107); Glucose 174 mg/dL (74-106); Potassium 4.1 mmol/L (3.5-5.1); Sodium 137 mmol/L (136-145); Total Protein 7.2 g/dL (5.7-8.2)
[2023-09-29] MEDS: LISINOPRIL 10 MG TAB PO SCH (10:00)
[2023-09-29] MEDS: LACTULOSE 20Gm/30ML SOLN PO SCH (10:00)
[2023-09-29] MEDS: FUROSEMIDE 40 MG/4 ML VIAL IV SCH (10:05)
[2023-09-29] MEDS: PANTOPRAZOLE 40 MG/10 ML VIAL INJ IV SCH (10:05)
[2023-09-29] MEDS: CYANOCOBALAMIN 500 MCG TAB PO SCH (10:08)
[2023-09-29] MEDS: CARVEDILOL 12.5 MG TAB PO SCH ×2 (10:08→21:36)
[2023-09-29] MEDS: APIXABAN 5 MG TAB PO SCH ×2 (10:09→21:36)
[2023-09-29] MEDS: SPIRONOLACTONE 25 MG TAB PO SCH (10:10)
[2023-09-29 12:12] LABS: Magnesium 2.1 mg/dL (1.6-2.6)
[2023-09-29] MEDS: ATORVASTATIN 20 MG TAB PO SCH (21:34)
[2023-09-30] MEDS: METOCLOPRAMIDE HCL 5MG/ml INJ 2ml VIAL IV SCH ×2 (04:45→12:00)
[2023-09-30 05:00] VITALS: BP 121/64; PULSE 77; RESP 17; TEMP 98.5; O2SAT 97
[2023-09-30 06:21] LABS: Anion Gap 9 (5-15); Carbon Dioxide 27 mmol/L (20-30); Chloride 101 mmol/L (98-107); Potassium 3.3 mmol/L (3.5-5.1); Sodium 137 mmol/L (136-145)
[2023-09-30] MEDS: SUCRALFATE 1 GM/10 ML ORAL SUSP PO SCH (06:23)
[2023-09-30] MEDS: EMPAGLIFLOZIN 10 MG TAB PO SCH (06:24)
[2023-09-30 06:27] LABS: Basophils # (auto) 0.1 10 ^3/uL (0-0.2); Basophils % (auto) 0.7 % (0.0-2.0); Blood Urea Nitrogen 26 mg/dL (9-23); Eosinophils # (auto) 0.4 10 ^3/uL (0-0.8); Glucose 98 mg/dL (74-106); Hematocrit 39.6 % (41.0-53.0); Hemoglobin 13.6 g/dL (13.5-17.5); Lymphocytes # (auto) 1.6 10 ^3/uL (0.4-5.4); Mean Corpuscular Hemoglobin 31.7 pg (28.0-32.0); Mean Corpuscular Hgb Conc. 34.3 g/dL (32.0-36.0); Mean Corpuscular Volume 92.5 fL (80.0-100.0); Monocytes % (auto) 10.2 % (0.0-12.0); Neutrophils # (auto) 6.9 10 ^3/uL (1.6-8.6); Neutrophils % (auto) 69.1 % (37.0-80.0); Nucleated Red Blood Cells % 0.1 %; Red Blood Cells 4.28 10^6/uL (4.5-5.90); Red Cell Distribution Width 12.7 % (11.8-14.3)
[2023-09-30] MEDS: SODIUM CHLOR 0.9% PF (SALINE LOCK) 10ML VIAL/SYR IV SCH ×2 (06:27→08:42)
[2023-09-30 07:39] VITALS: PULSE 95; RESP 17; O2SAT 98
[2023-09-30 08:00] VITALS: PULSE 77
[2023-09-30] MEDS ORDERED: POTASSIUM CHL 10 Meq TABLET PO ONE (08:30)
[2023-09-30] MEDS: LACTULOSE 20Gm/30ML SOLN PO SCH (08:34)
[2023-09-30] MEDS: FUROSEMIDE 40 MG/4 ML VIAL IV SCH (08:40)
[2023-09-30] MEDS: PANTOPRAZOLE 40 MG/10 ML VIAL INJ IV SCH (08:40)
[2023-09-30] MEDS: APIXABAN 5 MG TAB PO SCH (08:42)
[2023-09-30] MEDS: SPIRONOLACTONE 25 MG TAB PO SCH (08:42)
[2023-09-30] MEDS: CYANOCOBALAMIN 500 MCG TAB PO SCH (08:42)
[2023-09-30] MEDS: LISINOPRIL 10 MG TAB PO SCH (08:43)
[2023-09-30] MEDS: CARVEDILOL 12.5 MG TAB PO SCH (08:43)
[2023-09-30 09:00] VITALS: BP 127/78; PULSE 77; RESP 18; TEMP 98.2; O2SAT 93
[2023-09-30] MEDS ORDERED: FURO1TAB31 PO (10:51)
[2023-09-30] MEDS ORDERED: APIX5TAB PO (10:51)
[2023-09-30] MEDS ORDERED: LISI10TA34 PO (10:51)
[2023-09-30] MEDS ORDERED: SUCR1SUS26 PO (10:51)
[2023-09-30] MEDS ORDERED: CAR125T PO (10:51)
[2023-09-30] MEDS ORDERED: EMPA1TAB PO (10:51)
[2023-09-30] MEDS ORDERED: PANT40TA2 PO (10:51)
[2023-09-30] MEDS ORDERED: ATOR20TA50 PO (10:51)
[2023-09-30] MEDS ORDERED: SPIR25TA PO (10:51)
[2023-09-30 11:26] VITALS: BP 127/78; PULSE 93; RESP 18; O2SAT 76
== END 2023-09-30 12:46 | disposition home or self-care (01) | DRG 720 ==
LOC: ER 03:04 → TELE 07:13 → ICU WEST 16:30 → DOU IN ICU 09-26 12:38 → TELE-WESTW 09-27 21:30
PROVIDERS: ADMIT Nurse Practitioner Family; ATTEND Internal Medicine Pulmonary Disease
PROC: 5A1955Z Respiratory Ventilation, Greater than 96 Consecutive Hours (ICD-10-PCS; principal; 2023-09-15)
PROC: 0BH17EZ Insertion of Endotracheal Airway into Trachea, Via Natural or Artificial Opening (ICD-10-PCS; 2023-09-15)
PROC: 5A12012 Performance of Cardiac Output, Single, Manual (ICD-10-PCS; 2023-09-15)
PROC: 02HV33Z Insertion of Infusion Device into Superior Vena Cava, Percutaneous Approach (ICD-10-PCS; 2023-09-15)
PROC: B548ZZA Ultrasonography of Superior Vena Cava, Guidance (ICD-10-PCS; 2023-09-15)
PROC: 4A023N7 Measurement of Cardiac Sampling and Pressure, Left Heart, Percutaneous Approach (ICD-10-PCS; 2023-09-16)
PROC: B211YZZ Fluoroscopy of Multiple Coronary Arteries using Other Contrast (ICD-10-PCS; 2023-09-16)
PROC: B215YZZ Fluoroscopy of Left Heart using Other Contrast (ICD-10-PCS; 2023-09-16)
PROC: 0B9B8ZZ Drainage of Left Lower Lobe Bronchus, Via Natural or Artificial Opening Endoscopic (ICD-10-PCS; 2023-09-17)
PROC: 0B968ZZ Drainage of Right Lower Lobe Bronchus, Via Natural or Artificial Opening Endoscopic (ICD-10-PCS; 2023-09-17)
PROC: 0DB98ZX Excision of Duodenum, Via Natural or Artificial Opening Endoscopic, Diagnostic (ICD-10-PCS; 2023-09-23)
PROC: 0DB68ZX Excision of Stomach, Via Natural or Artificial Opening Endoscopic, Diagnostic (ICD-10-PCS; 2023-09-23)
DX: A41.9 Sepsis, unspecified organism (principal); I46.9 Cardiac arrest, cause unspecified; R65.21 Severe sepsis with septic shock; I50.21 Acute systolic (congestive) heart failure; J18.9 Pneumonia, unspecified organism; J96.01 Acute respiratory failure with hypoxia; J96.02 Acute respiratory failure with hypercapnia; I11.0 Hypertensive heart disease with heart failure; I47.10 Supraventricular tachycardia, unspecified; I21.A1 Myocardial infarction type 2; Z20.822 Contact with and (suspected) exposure to COVID-19; D45 Polycythemia vera; E11.9 Type 2 diabetes mellitus without complications; I25.10 Atherosclerotic heart disease of native coronary artery without angina pectoris; J44.0 Chronic obstructive pulmonary disease with (acute) lower respiratory infection; J44.1 Chronic obstructive pulmonary disease with (acute) exacerbation; K29.70 Gastritis, unspecified, without bleeding; K31.9 Disease of stomach and duodenum, unspecified; E66.01 Morbid (severe) obesity due to excess calories; Z68.32 Body mass index [BMI] 32.0-32.9, adult; R33.9 Retention of urine, unspecified; I48.0 Paroxysmal atrial fibrillation; R04.2 Hemoptysis; F17.210 Nicotine dependence, cigarettes, uncomplicated; Z91.148 Patient's other noncompliance with medication regimen for other reason; Z79.82 Long term (current) use of aspirin
CPT/HCPCS: 31500; 31645; 36415; 36569; 36600; 43239; 71045; 71275; 74018; 80048; 80053; 80061; 80202; 80307; 81001; 82140; 82270; 82306; 82607; 82805; 83036; 83605; 83735; 83880; 84100; 84132; 84443; 84484; 85014; 85018; 85025; 85379; 85610; 85730; 86141; 87040; 87070; 87081; 87086; 87205; 87426; 87804; 92610; 92950; 93005; 93306; 93458; 93970; 94003; 97110; 97116; 97163; 97530; 99152; 99153; 99291; C9113; G0378; J0153; J0171; J1100; J2250; J2405; J2543; J2704; J3480; J3490; J7060; Q9967

== ENCOUNTER → 2024-01-23 | Outpatient (CLI) | payer MEDICAID ==
[~2024-01-23] MED LIST: APIX5TAB PO; ATOR20TA50 PO; CAR125T PO; EMPA1TAB PO; FURO1TAB31 PO; LISI10TA34 PO; PANT40TA2 PO; SPIR25TA PO; SUCR1SUS26 PO
== END | disposition home or self-care (01) ==
LOC: XYW 13:32
PROVIDERS: ATTEND Student in an Organized Health Care Education/Training Program
DX: I50.21 Acute systolic (congestive) heart failure (principal)
CPT/HCPCS: 93306

== ENCOUNTER → 2024-01-26 | Outpatient (CLI) | payer MEDICAID ==
[2024-01-26 07:33] LABS: Basophils # (auto) 0.1 10 ^3/uL (0-0.2); Basophils % (auto) 1.3 % (0.0-2.0); Eosinophils # (auto) 0.4 10 ^3/uL (0-0.8); Eosinophils % (auto) 4.6 % (0.0-7.0); Hematocrit 41.2 % (41.0-53.0); Hemoglobin 13.9 g/dL (13.5-17.5); Lymphocytes % (auto) 34.5 % (10.0-50.0); Mean Corpuscular Hemoglobin 29.5 pg (28.0-32.0); Mean Corpuscular Hgb Conc. 33.8 g/dL (32.0-36.0); Mean Corpuscular Volume 87.3 fL (80.0-100.0); Monocytes # (auto) 0.6 10 ^3/uL (0-1.3); Monocytes % (auto) 6.8 % (0.0-12.0); Neutrophils # (auto) 4.6 10 ^3/uL (1.6-8.6); Neutrophils % (auto) 52.8 % (37.0-80.0); Red Blood Cells 4.72 10^6/uL (4.5-5.90); Red Cell Distribution Width 13.5 % (11.8-14.3); White Blood Cell 8.7 10^3/uL (4.4-10.8)
[2024-01-26 08:07] LABS: Alanine Aminotransferase 16 U/L (7-40); Albumin 4.1 g/dL (3.2-4.8); Alkaline Phosphatase 124 U/L (46-116); Anion Gap 4 (5-15); Aspartate Aminotransferase 13 U/L (13-40); BUN/Creatinine Ratio 15.7 (10.0-20.0); Blood Urea Nitrogen 20 mg/dL (9-23); Calcium 9.1 mg/dL (8.5-10.1); Carbon Dioxide 30 mmol/L (20-30); Chloride 106 mmol/L (98-107); Cholesterol 122 mg/dL (< 200); Glucose 97 mg/dL (74-106); LDL Cholesterol 80 mg/dL (< 100); Potassium 4.3 mmol/L (3.5-5.1); Sodium 140 mmol/L (136-145); Triglycerides 175 mg/dL (< 150)
[2024-01-26 08:08] LABS: Bilirubin, Direct 0.2 mg/dL (<0.3); Bilirubin, Total 0.4 mg/dL (0.2-1.0); HDL Cholesterol 22 mg/dL (40-59); Total Protein 6.5 g/dL (5.7-8.2)
== END | disposition home or self-care (01) ==
LOC: LAB 07:22
PROVIDERS: ATTEND Student in an Organized Health Care Education/Training Program
DX: I50.21 Acute systolic (congestive) heart failure (principal); E11.59 Type 2 diabetes mellitus with other circulatory complications; I46.9 Cardiac arrest, cause unspecified
CPT/HCPCS: 36415; 80053; 80061; 80076; 83036; 83880; 84443; 85025

== ENCOUNTER → 2024-04-27 | Outpatient (CLI) | payer MEDICAID ==
[~2024-04-27] MED LIST changes: -CAR125T PO; +CARV-216 PO
[2024-04-27 08:54] LABS: Urine Bacteria None Seen /hpf (None Seen)
[2024-04-27 09:00] LABS: Basophils # (auto) 0.1 10 ^3/uL (0-0.2); Basophils % (auto) 0.9 % (0.0-2.0); Eosinophils # (auto) 0.4 10 ^3/uL (0-0.8); Eosinophils % (auto) 3.5 % (0.0-7.0); Hematocrit 35.2 % (41.0-53.0); Hemoglobin 11.6 g/dL (13.5-17.5); Lymphocytes # (auto) 2.8 10 ^3/uL (0.4-5.4); Lymphocytes % (auto) 27.9 % (10.0-50.0); Mean Corpuscular Hemoglobin 29.1 pg (28.0-32.0); Mean Corpuscular Volume 88.3 fL (80.0-100.0); Monocytes # (auto) 0.8 10 ^3/uL (0-1.3); Monocytes % (auto) 8.3 % (0.0-12.0); Neutrophils % (auto) 59.4 % (37.0-80.0); Nucleated Red Blood Cells % 0.1 %; Red Blood Cells 3.98 10^6/uL (4.5-5.90); Red Cell Distribution Width 16.5 % (11.8-14.3); White Blood Cell 10.1 10^3/uL (4.4-10.8)
[2024-04-27 09:15] LABS: Urine Blood Negative /uL (Negative); Urine Clarity Clear (Clear); Urine Color Light-Yellow (Yellow); Urine Hyaline Cast FEW /lpf (0 - 2); Urine Protein, UAD TRACE (Negative); Urine Specific Gravity 1.017 (1.001-1.035); Urine Urobilinogen Normal (Negative); Urine WBC 8 /hpf (0 - 3); Urine pH 5.5 (5.0-9.0)
[2024-04-27 10:14] LABS: Alanine Aminotransferase 46 U/L (7-40); Alkaline Phosphatase 62 U/L (46-116); Anion Gap 7 (5-15); BUN/Creatinine Ratio 23.5 (10.0-20.0); Blood Urea Nitrogen 50 mg/dL (9-23); Calcium 9.8 mg/dL (8.5-10.1); Carbon Dioxide 22 mmol/L (20-30); Chloride 108 mmol/L (98-107); Glucose 101 mg/dL (74-106); LDL Cholesterol 95 mg/dL (< 100); Sodium 137 mmol/L (136-145); Triglycerides 103 mg/dL (< 150)
[2024-04-27 10:15] LABS: Albumin 4.3 g/dL (3.2-4.8); Aspartate Aminotransferase 28 U/L (13-40); Bilirubin, Total 0.6 mg/dL (0.2-1.0); Cholesterol 128 mg/dL (< 200); HDL Cholesterol 20 mg/dL (40-59); Total Protein 7.4 g/dL (5.7-8.2)
== END | disposition home or self-care (01) ==
LOC: LAB 08:44
PROVIDERS: ATTEND Nurse Practitioner
DX: E11.9 Type 2 diabetes mellitus without complications (principal); E78.5 Hyperlipidemia, unspecified; I10 Essential (primary) hypertension
CPT/HCPCS: 36415; 80053; 80061; 81001; 83036; 84443; 85025

== ENCOUNTER → 2024-05-07 | Outpatient (CLI) | payer MEDICAID | END | disposition home or self-care (01) | LOC: XYW 09:19 | PROVIDERS: ATTEND Student in an Organized Health Care Education/Training Program | DX: I42.8 Other cardiomyopathies (principal); I48.0 Paroxysmal atrial fibrillation; I11.0 Hypertensive heart disease with heart failure; I50.22 Chronic systolic (congestive) heart failure; R93.1 Abnormal findings on diagnostic imaging of heart and coronary circulation; E11.65 Type 2 diabetes mellitus with hyperglycemia; K70.9 Alcoholic liver disease, unspecified; F10.11 Alcohol abuse, in remission | CPT/HCPCS: 78472; A9560 ==

== ENCOUNTER → 2024-11-30 | Outpatient (CLI) | payer MEDICAID ==
[2024-11-30 09:38] LABS: Basophils # (auto) 0.1 10 ^3/uL (0-0.2); Basophils % (auto) 1.1 % (0.0-2.0); Eosinophils # (auto) 0.3 10 ^3/uL (0-0.8); Hematocrit 43.9 % (41.0-53.0); Hemoglobin 14.6 g/dL (13.5-17.5); Lymphocytes # (auto) 2.6 10 ^3/uL (0.4-5.4); Lymphocytes % (auto) 34.8 % (10.0-50.0); Mean Corpuscular Hemoglobin 29.4 pg (28.0-32.0); Mean Corpuscular Hgb Conc. 33.3 g/dL (32.0-36.0); Mean Corpuscular Volume 88.4 fL (80.0-100.0); Monocytes # (auto) 0.6 10 ^3/uL (0-1.3); Monocytes % (auto) 8.6 % (0.0-12.0); Neutrophils # (auto) 3.8 10 ^3/uL (1.6-8.6); Neutrophils % (auto) 51.5 % (37.0-80.0); Nucleated Red Blood Cells % 0.1 %; Platelet Count (auto) 174 10^3/uL (140-450); Red Blood Cells 4.97 10^6/uL (4.5-5.90); Red Cell Distribution Width 15.4 % (11.8-14.3); White Blood Cell 7.3 10^3/uL (4.4-10.8)
[2024-11-30 09:40] LABS: Alanine Aminotransferase 19 U/L (7-40); Alkaline Phosphatase 95 U/L (46-116); Anion Gap 6 (5-15); Aspartate Aminotransferase 16 U/L (13-40); BUN/Creatinine Ratio 12.4 (10.0-20.0); Blood Urea Nitrogen 14 mg/dL (9-23); Calcium 9.1 mg/dL (8.7-10.4); Carbon Dioxide 29 mmol/L (20-31); Glucose 103 mg/dL (74-106); Potassium 4.7 mmol/L (3.5-5.1); Sodium 143 mmol/L (136-145)
[2024-11-30 09:41] LABS: Albumin 4.1 g/dL (3.2-4.8); Bilirubin, Total 0.6 mg/dL (0.2-1.0); Total Protein 6.8 g/dL (5.7-8.2)
[2024-11-30 09:51] LABS: Chloride 108 mmol/L (98-107)
== END | disposition home or self-care (01) ==
LOC: LAB 08:46
PROVIDERS: ATTEND Student in an Organized Health Care Education/Training Program
DX: I11.0 Hypertensive heart disease with heart failure (principal); I50.22 Chronic systolic (congestive) heart failure
CPT/HCPCS: 36415; 80053; 83036; 85025

== ENCOUNTER 2025-05-30 11:13 | Outpatient (CLI) | payer MEDICAID ==
[2025-05-30 11:40] LABS: Hematocrit 47.7 % (41.0-53.0); Hemoglobin 16.1 g/dL (13.5-17.5); Mean Corpuscular Hemoglobin 30.0 pg (28.0-32.0); Mean Corpuscular Volume 88.7 fL (80.0-100.0); Nucleated Red Blood Cells % 0.1 %
[2025-05-30 12:17] LABS: Alanine Aminotransferase 33 U/L (7-40); Alkaline Phosphatase 99 U/L (46-116); Anion Gap 7 (5-15); BUN/Creatinine Ratio 15.9 (10.0-20.0); Calcium 10.0 mg/dL (8.7-10.4); Carbon Dioxide 28 mmol/L (20-31); Chloride 103 mmol/L (98-107); Glucose 99 mg/dL (74-106); Potassium 4.6 mmol/L (3.5-5.1); Sodium 138 mmol/L (136-145); Total Protein 7.3 g/dL (5.7-8.2)
[2025-05-30 12:18] LABS: Albumin 4.5 g/dL (3.2-4.8); Cholesterol 165 mg/dL (< 200)
[2025-05-30 12:19] LABS: Bilirubin, Total 1.0 mg/dL (0.2-1.0); Blood Urea Nitrogen 23 mg/dL (9-23); HDL Cholesterol 26 mg/dL (40-59); Triglycerides 217 mg/dL (< 150)
[2025-05-30 12:30] LABS: Urine Protein, UAD TRACE (Negative)
== END 2025-05-30 17:00 | disposition home or self-care (01) ==
LOC: LAB 11:13
PROVIDERS: ATTEND Nurse Practitioner
DX: I10 Essential (primary) hypertension (principal); E11.9 Type 2 diabetes mellitus without complications; E78.5 Hyperlipidemia, unspecified
CPT/HCPCS: 36415; 80053; 80061; 81001; 83036; 84443; 85025

== ENCOUNTER 2025-06-24 09:56 | Day surgery (SDC) | payer MEDICAID ==
[2025-06-20 11:25] LABS: Hematocrit 45.3 % (41.0-53.0); Hemoglobin 15.4 g/dL (13.5-17.5); Mean Corpuscular Hemoglobin 30.3 pg (28.0-32.0); Mean Corpuscular Volume 89.5 fL (80.0-100.0); Nucleated Red Blood Cells % 0.5 %
[2025-06-20 11:28] LABS: Urine Protein, UAD Negative (Negative)
[2025-06-20 11:42] LABS: Alanine Aminotransferase 21 U/L (7-40); Albumin 4.5 g/dL (3.2-4.8); Alkaline Phosphatase 94 U/L (46-116); Anion Gap 8 (5-15); BUN/Creatinine Ratio 18.5 (10.0-20.0); Bilirubin, Total 0.8 mg/dL (0.2-1.0); Blood Urea Nitrogen 25 mg/dL (9-23); Calcium 10.0 mg/dL (8.7-10.4); Carbon Dioxide 27 mmol/L (20-31); Chloride 104 mmol/L (98-107); Glucose 94 mg/dL (74-106); Potassium 4.6 mmol/L (3.5-5.1); Sodium 139 mmol/L (136-145); Total Protein 7.1 g/dL (5.7-8.2)
[2025-06-20 11:43] LABS: INR 1.07 (0.9-1.15); Partial Thromboplastin Time 29.1 SEC (24.5-34.5); Prothrombin Time 11.3 sec (9.3-11.8)
[~2025-06-24] VITALS: Ht 165.1 cm; Wt 85.3 kg
[~2025-06-24 09:56] MED LIST changes: -CARV-216 PO; -EMPA1TAB PO; +METO25TA93 PO; +SACU1TAB7 PO
[2025-06-24] MEDS ORDERED: PROPOFOL 10 MG/ML 20 ML IV ONE ×2 (12:24→12:48)
[2025-06-24] MEDS ORDERED: LIDOCAINE 2% (LOCAL ANESTH.) PF 5ml SDV ONE (12:25)
[2025-06-24 12:52] VITALS: PULSE 84; PULSE 92; RESP 16; RESP 18; TEMP 97.5; O2SAT 96; O2SAT 98
--- NOTE | 2025-06-24 12:58 | DVHOP2 ---
Operative Report DATE OF OPERATION: 06/24/25 PROCEDURE: Colonoscopy with cold biopsy polypectomy. PREOPERATIVE INDICATION: The patient is a 70 -year-old male undergoing colonoscopy for colon cancer screening POSTOPERATIVE DIAGNOSES: 1. There were two diminutive benign-appearing hyperplastic rectosigmoid excrescences that were removed by cold biopsy forceps 2. Ucew-uv-mzdfxixa scattered diverticular disease most prominent in the sigmoid colon 3. Trace to 1+ internal hemorrhoids otherwise completely normal colonoscopy examination up to the cecum and terminal ileum PROCEDURE PERFORMED BY: Bolivar Rivera M.D. SCOPE: Olympus videocolonoscope. ASA CLASS: 2 PREOPERATIVE MEDICATIONS: Mac Sundeep varma PROCEDURE IN DETAIL: After obtaining an informed consent, the patient was placed on left lateral decubitus position. He was then sedated with the above medications. A rectal examination was performed that was normal. The colonoscope was then passed through the anus into the rectosigmoid and through the descending, transverse, and ascending colon up to the cecum with visualization of the appendiceal orifice, base of the cecum and the ileocecal valve. The colonoscope was then withdrawn. No polyps masses or lesions were seen. Patient had an isolated diverticulum in the right colon moderate left colon diverticular disease most run in the sigmoid In the rectosigmoid there were two diminutive benign-appearing excrescences that were seen and removed by cold biopsy forceps On retroflexion and straight on view he had 1+ internal hemorrhoids. The patient tolerated the procedure well without difficulty. WITHDRAWAL TIME: 8 minutes QUALITY OF THE PREP: Deloit Bowel Prep score: 9. COMPLICATIONS : None SPECIMENS: Rectosigmoid tiny polyps DISPOSITION: Stable D/C to home PLAN: 1. Repeat colonoscopy based on biopsy result likely in 7-10 years 2. Resume GI soft diet advance as tolerated 3. Increase fluid and fiber intake 4. Outpatient follow up with me in 4-6 weeks to review results and discuss further management BOLIVAR RIVERA MD Jun 24, 2025 12:58
[2025-06-24 13:22] VITALS: BP 118/71; PULSE 69; RESP 13; O2SAT 100
== END 2025-06-24 13:37 | disposition home or self-care (01) ==
LOC: GI 09:56
PROVIDERS: ATTEND Internal Medicine Gastroenterology
DX: R10.9 Unspecified abdominal pain (principal); K64.0 First degree hemorrhoids; K63.5 Polyp of colon; K57.30 Diverticulosis of large intestine without perforation or abscess without bleeding; I10 Essential (primary) hypertension; I25.2 Old myocardial infarction; E66.9 Obesity, unspecified; Z68.33 Body mass index [BMI] 33.0-33.9, adult; F17.200 Nicotine dependence, unspecified, uncomplicated; Z79.899 Other long term (current) drug therapy; Z98.890 Other specified postprocedural states
CPT/HCPCS: 36415; 45380; 80053; 81001; 85025; 85610; 85730; 88305; J2003; J2704; J7030

== ENCOUNTER 2025-10-17 11:11 | Emergency (ER) | payer MEDICAID ==
[~2025-10-17] VITALS: Ht 172.7 cm; Wt 80.0 kg
[2025-10-17 11:35] VITALS: PULSE 74; RESP 14; TEMP 98.4; O2SAT 98
--- NOTE | 2025-10-17 12:41 | ECG ---
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
[2025-10-17] MEDS: SODIUM CHLORIDE 0.9% 1,000 ML IV ONE (13:28)
--- NOTE | 2025-10-17 13:31 | ED.PDOC ---
HPI Comments 70M who is slovak speaking was BIBA w/ prior MHx of High Lipids, HTN, GERD, CVA:SHx of Cataract Sx and the c/c of CP. Pt reports on being at a surgical center for having Sx on the pt's right cataract extraction w/ intra ocular lens implant. After the Sx, the pt stated to staff that he was having CP/SOB and was given 2mg of morphine/325 of aspirin at the Sx center. Pt states that after the procedure, he felt anxious and when EMS arrived to the Sx center, the pt did not inform EMS about the SOB.Pt had a BS of 103 w/ EMS but in the ER had a BS of 92. Denies any symptoms at this time. Patient denies any dizziness, numbness, weakness, tingling, fever, chills, or recent fall. Chief Complaint: Chest Pain Time Seen by : 13:00 Reviewed Notes: Nurses Notes, Medications, Allergies Allergies: Coded Allergies: NO KNOWN ALLERGIES (Unverified , 09/15/23) Home Meds Active Scripts Furosemide (Lasix) 40 Mg Tab, 40 MG PO DAILY for 30 Days, #30 TAB Prov:ANDREW MCCANN MD 09/30/23 Sucralfate (CARAFATE SUSP) 1 Gm/10 Ml Ss, 1 GM PO BIDAC for 30 Days, #120 ML Prov:ANDREW MCCANN MD 09/30/23 Pantoprazole Sodium Sesquihydr (Protonix) 40 Mg Tab, 40 MG PO DAILY, #30 TAB Prov:ANDREW MCCANN MD 09/30/23 Spironolactone (Aldactone) 25 Mg Tab, 25 MG PO DAILY for 30 Days, #30 TAB Prov:ANDREW MCCANN MD 09/30/23 Lisinopril (Lisinopril) 10 Mg Tab, 10 MG PO DAILY for 30 Days, #30 TAB Prov:ANDREW MCCANN MD 09/30/23 Atorvastatin Calcium (ATORVASTATIN CALCIUM) 20 Mg Tab, 40 MG PO HS for 30 Days, #60 TAB Prov:ANDREW MCCANN MD 09/30/23 Apixaban Base (ELIQUIS) 5 Mg Tab, 5 MG PO BID for 30 Days, #60 TAB Prov:ANDREW MCCANN MD 09/30/23 Reported Medications Metoprolol Succinate (Metoprolol Succinate Er) 25 Mg Tab, 25 MG PO DAILY, TAB 06/20/25 Sacubitril-Valsartan (Entresto 49-51 mg) 1 Tab Tab, 1 TAB PO DAILY, TAB 06/20/25 Information Source: Patient Mode of Arrival: EMS Severity: Moderate Timing: Minutes Duration: Since onset, Minutes Prehospital treatment: None Radiation: No Radiation Quality: Aching Onset: With Light Exertion Cardiac Risk Factors: Hyperlipidemia, HTN PE Risk Factors: Recent Surgery History of: None Associated Signs and Symptoms: None Past Medical History PAST MEDICAL HISTORY: CVA, GERD, High Lipids, HTN Surgical History (Other): Cataract Sx Family History Family History: Reviewed,noncontributory to illness, Unknown Social History Smoker: Cigarettes Alcohol: Occasionally Drugs: Denies Drug Use Lives In: Home Constitutional: denies: chills, diaphoresis, fatigue, fever, malaise, sweats, weakness, others EENTM: denies: blurred vision, double vision, ear bleeding, ear discharge, ear drainage, ear pain, ear ringing, eye pain, eye redness, hearing loss, mouth pain, mouth swelling, nasal discharge, nose bleeding, nose congestion, nose pain, photophobia, tearing, throat pain, throat swelling, voice changes, others Respiratory: reports: shortness of breath; denies: cough, hemoptysis, orthopnea, SOB at rest, SOB with excertion, stridor, wheezing, others Cardiovascular: reports: chest pain; denies: dizzy spells, diaphoresis, Dyspnea on exertion, edema, irregular heart beat, left arm pain, lightheadedness, palpitations, PND, syncope, others Gastrointestinal: denies: abdomen distended, abdominal pain, blood streaked bowels, constipated, diarrhea, dysphagia, difficulty swallowing, hematemesis, melena, nausea, poor appetite, poor fluid intake, rectal bleeding, rectal pain, vomiting, others Genitourinary: denies: burning, dysuria, flank pain, frequency, hematuria, incontinence, penile discharge, penile sore, pain, testicle pain, testicle swelling, urgency, others Neurological: denies: dizziness, fainting, headache, left sided numbness, left sided weakness, numbness, paresthesia, pre-existing deficit, right sided numbness, right sided weakness, seizure, speech problems, tingling, tremors, weakness, others Musculoskeletal: denies: back pain, gout, joint pain, joint swelling, muscle pain, muscle stiffness, neck pain, others Integumetry: denies: bruises, change in color, change in hair/nails, dryness, laceration, lesions, lumps, rash, wounds, others Allergic/Immunocompromised: denies: Difficulty Healing, Frequent Infections, Hives, Itching, others Hematologic/Lymphatic: denies: anemia, blood clots, easy bleeding, easy bruising, swollen glands, others Endocrine: denies: excessive hunger, excessive sweating, excessive thirst, excessive urination, flushing, intolerance to cold, intolerance to heat, unexplained weight gain, unexplained weight loss, others Psychiatric: denies: anxiety, bipolar disorder, depression, hopeless, panic disorder, schizophrenia, sleepless, suicidal, others All Other Systems: Reviewed and Negative Physical Exam General Appearance: No Apparent Distress, Obese HEENT: Normal ENT Inspection, PERRL/EOMI, Pharynx Normal, TMs Normal, Other (And had recent cataract surgery) Neck: Full Range of Motion, Non-Tender, Normal, Normal Inspection Respiratory: Chest Non-Tender, Lungs Clear, No Accessory Muscle Use, No Respiratory Distress, Normal Breath Sounds Cardiovascular: No Edema, No JVD, No Murmur, No Gallop, Normal Peripheral Pulses, Regular Rate/Rhythm Breast Exam: Deferred Gastrointestinal: No Organomegaly, Non Tender, No Pulsatile Mass, Normal Bowel Sounds, Soft Genitalia: Deferred Pelvic: Deferred Rectal: Deferred Extremities: No calf tenderness, Normal capillary refill, Normal inspection, Normal range of motion, Non-tender, No pedal edema Musculoskeletal : Apperance: Normal Neurologic: Alert, animal humane 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 Was a procedure done?: No CP Differential Dx Differential Diagnosis: Anxiety / Panic Attack, Electrolyte Disorder Differential Diagnosis: HTN Essential Differential Diagnosis: Other (Malaise possible syncope after surgery) X-Ray, Labs, Meds, VS Vital Signs Date Time Temp Pulse Resp B/P (MAP) Pulse Ox O2 Delivery O2 Flow Rate FiO2 10/17/25 14:00 71 12 105/63 (77) 99 10/17/25 13:32 75 10/17/25 13:00 82 14 122/82 (95) 93 10/17/25 12:30 75 13 137/74 (95) 100 10/17/25 12:00 75 10/17/25 11:35 98.4 74 14 133/74 (93) 98 98.4 10/17/25 11:35 74 14 98 Room Air* 0 21 10/17/25 11:14 75 10/17/25 11:11 97.8 83 16 165/88 100 97.8 Lab Test 10/17/25 14:09 10/17/25 12:18 10/17/25 11:48 10/17/25 11:38 Range/Units Troponin I High Sensitivity 13 11 </=54 ng/L Sodium Level 144 136-145 mmol/L Potassium Level 4.7 3.5-5.1 mmol/L Chloride Level 106 98-107 mmol/L Carbon Dioxide Level 24 20-31 mmol/L Anion Gap 14 5-15 Blood Urea Nitrogen 21 9-23 mg/dL Creatinine 1.32 H 0.700-1.30 mg/dL Glomerular Filtration Rate Calc 59 >90 mL/min BUN/Creatinine Ratio 15.9 10.0-20.0 Serum Glucose 115 H 74-106 mg/dL Calcium Level 9.4 8.7-10.4 mg/dL Total Bilirubin 0.4 0.2-1.0 mg/dL Aspartate Amino Transferase (AST) 23 13-40 U/L Alanine Aminotransferase (ALT) 25 7-40 U/L Alkaline Phosphatase 88 46-116 U/L Total Protein 6.9 5.7-8.2 g/dL Albumin 4.2 3.2-4.8 g/dL POC Glucose 92 70-106 mg/dl White Blood Count 7.7 4.4-10.8 10^3/uL Red Blood Count 4.81 4.5-5.90 10^6/uL Hemoglobin 14.8 13.5-17.5 g/dL Hematocrit 43.9 41.0-53.0 % Mean Corpuscular Volume 91.2 80.0-100.0 fL Mean Corpuscular Hemoglobin 30.7 28.0-32.0 pg Mean Corpuscular Hemoglobin Concent 33.7 32.0-36.0 g/dL Red Cell Distribution Width 14.7 H 11.8-14.3 % Platelet Count 205 140-450 10^3/uL Mean Platelet Volume 9.2 6.9-10.8 fL Neutrophils (%) (Auto) 60.8 37.0-80.0 % Lymphocytes (%) (Auto) 26.8 10.0-50.0 % Monocytes (%) (Auto) 9.4 0.0-12.0 % Eosinophils (%) (Auto) 2.1 0.0-7.0 % Basophils (%) (Auto) 0.9 0.0-2.0 % Neutrophils # (Auto) 4.7 1.6-8.6 10 ^3/uL Lymphocytes # (Auto) 2.1 0.4-5.4 10 ^3/uL Monocytes # (Auto) 0.7 0-1.3 10 ^3/uL Eosinophils # (Auto) 0.2 0-0.8 10 ^3/uL Basophils # (Auto) 0.1 0-0.2 10 ^3/uL Nucleated Red Blood Cells 0.0 % Prothrombin Time 11.2 9.3-11.8 sec Prothrombin Time INR 1.06 0.9-1.15 Activated Partial Thromboplast Time 30.1 24.5-34.5 SEC Test 10/17/25 11:30 Range/Units Troponin I High Sensitivity 9 </=54 ng/L Current Medications Medications (Trade) Dose Ordered Sig/Kenia Route Start Time Stop Time Status Last Admin Sodium Chloride 1,000 ml @ 150 mls/hr Q6H40M ONCE IV 10/17/25 13:00 10/17/25 19:39 10/17/25 13:28 X-Ray, Labs, Meds, VS Comment Course in the emergency department eventful patient came in because of a malleolus or even ileus syncope after surgery in his right eye patient is on Eliquis he has history of CVA high cholesterol hypertension and GERD EKG shows normal sinus rhythm at 75 Troponin nine and 11 CBC normal INR 1.06 CMP negative Patient will be discharged home to follow up with his PCP in [place] Time of 1ST Reevaluation: 13:30 Reevaluation 1ST: Unchanged Patient Education/Counseling: Diagnosis, Treatment, Prognosis Family Education/Counseling: Diagnosis, Treatment, Prognosis SEPSIS Sepsis Screen Date sepsis recognized/suspect: Oct 17, 2025 Time Sepsis recognized/suspect: 1134 Recent Procedure: Yes (RIGHT CATRACT EXTRACTION WITH INTRAOCULAR LENS IMPLANT ) On Antibiotic Therapy: No Respiratory Rate >20: No Heart Rate >90: No Temp<36 C (96.8 F) or >38.3 C: No SBP <90 or MAP <65 mmHG: No New Acute Mental Status Change: No Is the patient on CPAP, BIPAP,: No Physician Orders Electrocardigram (10/17/25 12:16) Electrocardigram (10/17/25 14:16) Heplock Iv (10/17/25 12:57) Blood Pressure (10/17/25 12:57) Sodium Chloride 0.9% (10/17/25 13:00) Vital Signs Date Time Temp Pulse Resp B/P (MAP) Pulse Ox O2 Delivery O2 Flow Rate FiO2 10/17/25 14:00 71 12 105/63 (77) 99 10/17/25 13:32 75 10/17/25 13:00 82 14 122/82 (95) 93 10/17/25 12:30 75 13 137/74 (95) 100 10/17/25 12:00 75 10/17/25 11:35 98.4 74 14 133/74 (93) 98 98.4 10/17/25 11:35 74 14 98 Room Air* 0 21 10/17/25 11:14 75 10/17/25 11:11 97.8 83 16 165/88 100 97.8 Laboratory Tests Test 10/17/25 11:38 White Blood Count 7.7 10^3/uL (4.4-10.8) Medications Medications Dose Ordered Sig/Kenia Route Start Time Stop Time Status Last Admin Dose Admin Sodium Chloride 1,000 ml @ 150 mls/hr Q6H40M ONCE IV 10/17/25 13:00 10/17/25 19:39 10/17/25 13:28 Departure 1 Departure Time of Disposition: 14:51 Impression: Primary Impression: Malaise and fatigue Additional Impression: Status post right cataract surgery Disposition: 01 HOME / SELF CARE / HOMELESS Condition: Fair Additional Instructions: Follow up with your [place] Discharged With: Self, Relative Critical Care Note Critical Care Time?: No Stability Stability form required: No Heart Score Heart Score: Heart Score Response (Comments) Value History N/A 0 EKG Normal 0 Age >65 2 Risk Factors 1 or 2 risk factors 1 Troponin Normal limit 0 Total 3 I personally scribed for RUBI RIVERA MD ([email or web address]) on 10/17/25 at 13:31. Electronically submitted by Juanito Jennings ([email or web address]). I personally scribed for RUIB RIVERA MD ([email or web address]) on 10/17/25 at 13:32. Electronically submitted by Juanito Jennings ([email or web address]). RUBI RIVERA MD Oct 17, 2025 13:31
[2025-10-17 13:50] LABS: Hematocrit 43.9 % (41.0-53.0); Hemoglobin 14.8 g/dL (13.5-17.5); Mean Corpuscular Hemoglobin 30.7 pg (28.0-32.0); Mean Corpuscular Volume 91.2 fL (80.0-100.0); Nucleated Red Blood Cells % 0.0 %
[2025-10-17 14:07] LABS: INR 1.06 (0.9-1.15); Partial Thromboplastin Time 30.1 SEC (24.5-34.5); Prothrombin Time 11.2 sec (9.3-11.8)
[2025-10-17 14:13] LABS: Alanine Aminotransferase 25 U/L (7-40); Albumin 4.2 g/dL (3.2-4.8); Alkaline Phosphatase 88 U/L (46-116); Anion Gap 14 (5-15); BUN/Creatinine Ratio 15.9 (10.0-20.0); Bilirubin, Total 0.4 mg/dL (0.2-1.0); Blood Urea Nitrogen 21 mg/dL (9-23); Calcium 9.4 mg/dL (8.7-10.4); Carbon Dioxide 24 mmol/L (20-31); Chloride 106 mmol/L (98-107); Glucose 115 mg/dL (74-106); Potassium 4.7 mmol/L (3.5-5.1); Sodium 144 mmol/L (136-145); Total Protein 6.9 g/dL (5.7-8.2)
--- NOTE | 2025-10-17 14:50 | ECG ---
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
[2025-10-17 15:00] VITALS: BP 118/73; PULSE 77; RESP 18; O2SAT 99
== END 2025-10-17 15:31 | disposition home or self-care (01) ==
LOC: EDBD 11:11 → ER 11:11
DX: R53.83 Other fatigue (principal); R53.81 Other malaise; R06.02 Shortness of breath; I10 Essential (primary) hypertension; E78.5 Hyperlipidemia, unspecified; K21.9 Gastro-esophageal reflux disease without esophagitis; F17.210 Nicotine dependence, cigarettes, uncomplicated; Z79.899 Other long term (current) drug therapy; Z86.73 Personal history of transient ischemic attack (TIA), and cerebral infarction without residual deficits; Z98.41 Cataract extraction status, right eye
CPT/HCPCS: 36415; 80053; 82947; 84484; 85025; 85610; 85730; 93005; 96360; 99285; J7030; 82962